=== PATIENT | female | born 1955 | race Caucasian/White ===

== ENCOUNTER → 2019-04-09 11:45 | Outpatient (BNVA) | payer OTHER, SELFPAY | PROVIDERS: Visit Provider Psychiatry & Neurology Psychiatry | DX: F33.1 Major depressive disorder, recurrent, moderate (principal) | CPT/HCPCS: 99213 ==

== ENCOUNTER → 2019-07-02 08:05 | Outpatient (BNVA) | payer OTHER, SELFPAY | PROVIDERS: PCP Nurse Practitioner; Visit Provider Psychiatry & Neurology Psychiatry | DX: F33.1 Major depressive disorder, recurrent, moderate (principal) | CPT/HCPCS: 99213 ==

== ENCOUNTER → 2019-09-24 07:40 | Outpatient (BNVA) | payer OTHER, SELFPAY | PROVIDERS: PCP Nurse Practitioner; Visit Provider Psychiatry & Neurology Psychiatry | DX: F33.1 Major depressive disorder, recurrent, moderate (principal) | CPT/HCPCS: 99213 ==

== ENCOUNTER → 2019-12-21 07:59 | Outpatient (BNVA) | payer MEDICARE, OTHER, SELFPAY | PROVIDERS: PCP Nurse Practitioner; Visit Provider Psychiatry & Neurology Psychiatry | DX: F33.1 Major depressive disorder, recurrent, moderate (principal) | CPT/HCPCS: 99213 ==

== ENCOUNTER → 2020-03-24 07:53 | Outpatient (BNVA) | payer MEDICARE, OTHER, SELFPAY | PROVIDERS: PCP Nurse Practitioner; Visit Provider Psychiatry & Neurology Psychiatry | DX: F33.1 Major depressive disorder, recurrent, moderate (principal) | CPT/HCPCS: 99213 ==

== ENCOUNTER → 2020-08-01 13:02 | Outpatient (BNVA) | payer MEDICARE, OTHER, SELFPAY | PROVIDERS: PCP Nurse Practitioner; Visit Provider Psychiatry & Neurology Psychiatry | DX: F33.1 Major depressive disorder, recurrent, moderate (principal) | CPT/HCPCS: 99213 ==

== ENCOUNTER → 2020-12-19 10:37 | Outpatient (BNVA) | payer MEDICARE, OTHER, SELFPAY | PROVIDERS: PCP Nurse Practitioner; Visit Provider Psychiatry & Neurology Psychiatry | DX: F33.1 Major depressive disorder, recurrent, moderate (principal) | CPT/HCPCS: 99213 ==

== ENCOUNTER → 2020-12-27 16:50 | Outpatient (BNVA) | payer MEDICARE, OTHER, SELFPAY | PROVIDERS: PCP Nurse Practitioner; Visit Provider Emergency Medicine | DX: R35.0 Frequency of micturition (principal); K52.9 Noninfective gastroenteritis and colitis, unspecified; E03.9 Hypothyroidism, unspecified | CPT/HCPCS: 81000 ==

== ENCOUNTER → 2021-04-08 17:25 | Outpatient (BNVA) | payer MEDICARE, OTHER, SELFPAY | PROVIDERS: PCP Nurse Practitioner; Visit Provider Nurse Practitioner Family | DX: R35.0 Frequency of micturition (principal) | CPT/HCPCS: 81000 ==

== ENCOUNTER → 2021-06-24 09:50 | Outpatient (BNVA) | payer MEDICARE, OTHER, SELFPAY | PROVIDERS: PCP Nurse Practitioner; Visit Provider Psychiatry & Neurology Psychiatry | DX: F33.1 Major depressive disorder, recurrent, moderate (principal) | CPT/HCPCS: 99213 ==

== ENCOUNTER → 2021-09-16 09:27 | Outpatient (BNVA) | payer MEDICARE, OTHER, SELFPAY | PROVIDERS: PCP Nurse Practitioner; Visit Provider Psychiatry & Neurology Psychiatry | DX: F33.1 Major depressive disorder, recurrent, moderate (principal) | CPT/HCPCS: 99213 ==

== ENCOUNTER → 2021-10-07 14:47 | Outpatient (BNVA) | payer MEDICARE, OTHER, SELFPAY | PROVIDERS: Visit Provider Nurse Practitioner Women's Health | DX: N89.8 Other specified noninflammatory disorders of vagina (principal) | CPT/HCPCS: 87624 ==

== ENCOUNTER → 2021-10-09 10:12 | Outpatient (BNVA) | payer MEDICARE, OTHER, SELFPAY | PROVIDERS: Visit Provider Emergency Medicine | DX: N39.0 Urinary tract infection, site not specified (principal); R30.0 Dysuria | CPT/HCPCS: 81000; 87086 ==

== ENCOUNTER → 2021-11-14 09:19 | Outpatient (BNVA) | payer MEDICARE, OTHER, SELFPAY | PROVIDERS: Visit Provider Emergency Medicine | DX: R30.0 Dysuria (principal); N39.0 Urinary tract infection, site not specified | CPT/HCPCS: 81000; 87077; 87086; 87184 ==

== ENCOUNTER → 2021-11-28 09:19 | Outpatient (BNVA) | payer MEDICARE, OTHER, SELFPAY | PROVIDERS: Visit Provider Emergency Medicine | DX: N39.0 Urinary tract infection, site not specified (principal); R35.0 Frequency of micturition | CPT/HCPCS: 81000; 87077; 87086; 87184 ==

== ENCOUNTER → 2021-12-02 09:25 | Outpatient (BNVA) | payer MEDICARE, OTHER, SELFPAY | PROVIDERS: Visit Provider Emergency Medicine | DX: R35.0 Frequency of micturition (principal); N30.01 Acute cystitis with hematuria; N32.81 Overactive bladder | CPT/HCPCS: 81000 ==

== ENCOUNTER 2021-12-14 14:09 | Emergency (ER) | payer MEDICARE, OTHER, SELFPAY ==
[2021-12-14 14:15] VITALS: BP 134/85; PULSE 95; RESP 16; TEMP 36.3; O2SAT 100; BMI 24.1
--- NOTE | 2021-12-14 14:30 | XRR_ITS ---
PROCEDURE INFORMATION: Exam: XR Chest Exam date and time: 12/14/2021 6:00 PM Age: 66 years old Clinical indication: Other: Back pain; Patient HX: Renal pain; Additional info: Ching TECHNIQUE: Imaging protocol: Radiologic exam of the chest. Views: 1 view. COMPARISON: CR XR chest 1V [id number] 05/25/2017 8:02 AM FINDINGS: Lungs: Unremarkable. No consolidation. Pleural spaces: Unremarkable. No pleural effusion. No pneumothorax. Heart/Mediastinum: Unremarkable. No cardiomegaly. Bones/joints: Mild dextroscoliosis of the thoracic spine. Visualized osseous structures are intact. XR/XR chest 1V portable [id number] IMPRESSION: No acute findings.
[2021-12-14 14:49] LABS: Add Urine Microscopic? NO; Charge for UA Resulting for Rev
[2021-12-14 15:11] LABS: Bilirubin Urine Neg (Negative); Blood Urine Neg (Negative); Glucose Urine UA Norm (Normal); Ketones Urine 1+ (Negative); Leukocyte Esterase Urine Negative (Negative); Nitrate Urine Negative (Negative); Protein Urine Neg (Negative); Specific Gravity, Urine 1.005 (1.005-1.030); Urine Appearance Clear (CLEAR); Urine Color Yellow (Yellow); Urobilinogen Urine Norm (Negative); pH Urine 6.5 (5-7)
[2021-12-14 15:15] LABS: Basophils % 0.3 %; Eosinophils % 0.4 %; Hemoglobin 15.4 g/dL (11.5-15.3); Lymphocytes # 1.3 10^3/uL (0.8-4.8); Mean Corpuscular HGB Conc 32.1 g/dL (30.0-36.0); Mean Corpuscular Hemoglobin 27.3 pg (28.0-34.0); Mean Corpuscular Volume 85.1 fl (81-99); Mean Platelet Volume 10.4 fL (7.4-10.4); Monocytes # 0.4 10^3/uL (0.2-0.9); Monocytes % 5.2 %; Neutrophils # 6.08 10^3/uL (1.8-7.7); Neutrophils % 77.7 %; Nucleated Red Blood Cells % 0 %; Platelet Count 316 10^3/cmm (130-400); Red Blood Count 5.64 10^6/uL (4.1-5.3); White Blood Count 7.8 10^3/uL (4.0-10.0)
[2021-12-14 15:28] LABS: Alanine Aminotransferase 63 U/L (0-33); Albumin Level 4.3 g/dL (3.5-5.2); Alkaline Phosphatase 201 U/L (35-105); Aspartate Amino Transferase 51 U/L (0-32); Blood Urea Nitrogen 25 mg/dL (8-23); Calcium 9.7 mg/dL (8.5-10.5); Carbon Dioxide 24 mmol/L (22-29); Chloride 99 mmol/L (98-107); Globulin 3.1 g/dL (1.3-4.6); Glomerular Filtration Rate 49.5 mL/min (90-130); Glucose 106 mg/dL (65-115); Lipase 42 U/L (13-60); Osmolality Calculated 289 mOsm/kg (285-295); Sodium 137 mmol/L (136-145); Total Bilirubin 0.8 mg/dL (0.15-1.2); Total Protein 7.4 g/dL (6.6-8.7)
[2021-12-14 15:31] LABS: SARS Covid-2 Antigen Negative (Negative)
[2021-12-14 15:35] LABS: Creatinine Clr Calc Pharmacy 40.6647
--- NOTE | 2021-12-14 18:10 | CTR_ITS ---
PROCEDURE INFORMATION: Exam: CT Abdomen And Pelvis Without Contrast Exam date and time: 12/14/2021 6:57 PM Age: 66 years old Clinical indication: Abdominal pain; Flank; Left; Additional info: Flank pain TECHNIQUE: Imaging protocol: Computed tomography of the abdomen and pelvis without contrast. Radiation optimization: All CT scans at this facility use at least one of these dose optimization techniques: automated exposure control; mA and/or kV adjustment per patient size (includes targeted exams where dose is matched to clinical indication); or iterative reconstruction. COMPARISON: CT abdomen pelvis w con* [id number] 05/21/2017 3:54 PM RADIATION DOSE METRICS: Total DLP (mGy-cm): 383.33 FINDINGS: Liver: Diffuse hepatic steatosis. No mass. Gallbladder and bile ducts: Normal. No calcified stones. No ductal dilation. Pancreas: Normal. No ductal dilation. Spleen: Normal. No splenomegaly. Adrenal glands: Normal. No mass. Kidneys and ureters: No renal stones. No hydronephrosis. Stomach and bowel: Unremarkable. No obstruction. No mucosal thickening. Appendix: No evidence of appendicitis. Intraperitoneal space: Unremarkable. No free air. No significant fluid collection. Vasculature: Unremarkable. No abdominal aortic aneurysm. Lymph nodes: Unremarkable. No enlarged lymph nodes. Urinary bladder: Unremarkable as visualized. Reproductive: Unremarkable as visualized. Bones/joints: No acute fracture. Soft tissues: Unremarkable. CT/CT kidney stone [id number] IMPRESSION: No acute findings. No renal stones.
[2021-12-14 18:22] LABS: Influenza A by IFA Negative (Negative); Influenza B by IFA Negative (Negative)
[2021-12-14 18:41] VITALS: BP 138/72
--- NOTE | 2021-12-14 18:51 | ED_ITS ---
HPI - Female Genitourinary General: Chief complaint: Urogenital-Female Stated complaint: Chills, back pain, shaking Time Seen by Provider: 12/14/21 18:09 Source: patient Mode of arrival: ambulatory Limitations: no limitations History of Present Illness: 66-year-old female states she has been having recu rrent UTIs over the last few weeks states she been on multiple antibiotics states she saw her provider today she been having some chills back pain and was concerned she may have a kidney infection she denies any vomiting denies any fever states her pain is sharp in nature rates it a 2-3 out of 10 she is in no distress here. Associated symptoms: Deny abdominal pain, headache(s) or nausea Review of Systems Const: Denies: fever(s), chills, body aches or change in appetite Eyes: Denies: blurry vision or eye discomfort ENMT: Denies: throat pain or dental pain Card: Denies: chest pain Resp: Denies: dyspnea GI: Denies: abdominal pain, nausea, vomiting or diarrhea : Reports: flank pain and dysuria Musc: Denies: neck pain or back pain Skin/Breast: Denies: rash Neuro: Denies: headache(s) Psych: Denies: depression Harinder/Lymph: Denies: easy bruising All/Imm: Denies: urticaria PFSH ED 2 PFSH: Medical History Bartholin cyst I&D Broken arm Hypothyroidism Irritable bowel syndrome (IBS) Lyme disease No pertinent past medical history neghx: htn,dm,dvt/pe PCP: [facility] Overactive bladder [facility] care [place] spotted fever Surgical History Deviated septum surgically H/O oral surgery wisdom teeth extraction Family History Father Thyroid disease Denies family history of Colon cancer Ovarian cancer Diabetes Heart disease Hypercholesteremia Breast cancer Hypertension Uterine cancer Stroke Social History Smoking and tobacco status: never smoked Female Reproductive History: Spontaneous abortions: No Physical Exam Const: COMMON NORMALS: no acute distress, patient oriented x3 and healthy appearing HENMT: COMMON NORMALS: normocephalic and atraumatic HEAD & SCALP: normoceph alic and atraumatic Eye: COMMON NORMALS: Equal, round and reactive pupils present and EOMs intact bilaterally PUPIL: Yes Equal, round and reactive pupils present Neck/C-Spine: COMMON NORMALS: full ROM and supple Chest: COMMONS NORMALS: normal inspection of the chest and normal palpation of entire chest wall Resp: COMMON NORMALS: normal respiratory effort, No retractions, No use of accessory muscles and clear to auscultation bilaterally AUSCULTATION: clear to auscultation bilaterally Cardio: COMMON NORMALS: regular rate, regular rhythm and No murmurs present (Cardio) RATE: regular rate RHYTHM: regular rhythm GI: COMMON NORMALS: Normal to inspection, nondistended, normoactive bowel sounds present, Soft to palpation, non-tender and no masses PALPATION: Yes Soft to palpation Extremity: COMMON NORMALS: normal to inspection and full ROM Neuro: COMMON NORMALS: patient oriented x3, moves all extremities and no focal motor deficits Psych: COMMON NORMALS: mental status grossly normal, Normal thought process present and cooperative THOUGHT PROCESS: Normal thought process present Skin: COMMON NORMALS: no rashes or lesions noted and no wounds GENERAL SKIN EXAM: no rashes or lesions noted Course Vital Signs: Vital signs: Vital Signs Temperature 97.4 F L 12/14/21 14:15 Pulse Rate 88 12/14/21 19:15 Respiratory Rate 17 12/14/21 19:15 Blood Pressure 138/91 12/14/21 19:15 Pulse Oximetry 100 12/14/21 19:15 Oxygen Delivery Me thod 12/14/21 19:15 MDM - Female Medical Decision Making Patient presents here with flank pain was concerned she had a kidney infection blood work here is all normal her CT is normal as well she is well-appearing here she is stable for discharge she is to follow-up with PCP and return if worsening she understands agrees plan. Lab Data : 12/14/21 14:50 12/14/21 14:50 Radiology Impressions Chest X-Ray 12/14/21 14:30 IMPRESSION: No acute findings. Abdomen/Pelvis CT 12/14/21 18:10 IMPRESSION: No acute findings. No renal stones. Laboratory Results WBC 7.8 10^3/uL (4.0-10.0) 12/14/21 14:50 RBC 5.64 10^6/uL (4.1-5.3) H 12/14/21 14:50 Hgb 15.4 g/dL (11.5-15.3) H 12/14/21 14:50 Hct 48.0 % (37.0-47.0) H 12/14/21 14:50 MCV 85.1 fl (81-99) 12/14/21 14:50 MCH 27.3 pg (28.0-34.0) L 12/14/21 14:50 MCHC 32.1 g/dL (30.0-36.0) 12/14/21 14:50 RDW 14.0 % (12.1-15.1) 12/14/21 14:50 Plt Count 316 10^3/cmm (130-400) 12/14/21 14:50 MPV 10.4 fL (7.4-10.4) 12/14/21 14:50 Neut % (Auto) 77.7 % 12/14/21 14:50 Lymph % (Auto) 16.0 % 12/14/21 14:50 [place] % (Auto) 5.2 % 12/14/21 14:50 Eos % (Auto) 0.4 % 12/14/21 14:50 Baso % (Auto) 0.3 % 12/14/21 14:50 Neut # (Auto) 6.08 10^3/uL (1.8-7.7) 12/14/21 14:50 Lymph # (Auto) 1.3 10^3/uL (0.8-4.8) 12/14/21 14:50 [place] # (Auto) 0.4 10^3/uL (0.2-0.9) 12/14/21 14:50 Eos # (Auto) 0.0 10^3/uL (0.0-0.8) 12/14/21 14:50 Baso # (Auto) 0.0 10^3/uL (0.0-0.1) 12/14/21 14:50 Nucleated RBC % (auto) 0 % 12/14/21 14:50 Nucleated RBCs # 0.0 /100WBC 12/14/21 14:50 Sodium 137 mmol/L (136-145) 12/14/21 14:50 Potassium 4.0 mmol/L (3.5-5.1) 12/14/21 14:50 Chloride 99 mmol/L (98-107) 12/14/21 14:50 Carbon Dioxide 24 mmol/L (22-29) 12/14/21 14:50 Anion Gap 18.0 (5-19) 12/14/21 14:50 BUN 25 mg/dL (8-23) H 12/14/21 14:50 Creatinine 1.1 mg/dL (0.5-0.9) H 12/14/21 14:50 GFR Calculation 49.5 mL/min (90-130) L 12/14/21 14:50 Glucose 106 mg/dL (65-115) 12/14/21 14:50 Calculated Osmolality 289 mOsm/kg (285-295) 12/14/21 14:50 Calcium 9.7 mg/dL (8.5-10.5) 12/14/21 14:50 Total Bilirubin 0.8 mg/dL (0.15-1.2) 12/14/21 14:50 AST 51 U/L (0-32) H 12/14/21 14:50 ALT 63 U/L (0-33) H 12/14/21 14:50 Alkaline Phosphatase 201 U/L (35-105) H 12/14/21 14:50 Total Protein 7.4 g/dL (6.6-8.7) 12/14/21 14:50 Albumin 4.3 g/dL (3.5-5.2) 12/14/21 14:50 Globulin 3.1 g/dL (1.3-4.6) 12/14/21 14:50 Lipase 42 U/L (13-60) 12/14/21 14:50 Urine Color Yellow (Yellow) 12/14/21 14:25 Urine Appearance Clear (CLEAR) 12/14/21 14:25 Urine pH 6.5 (5-7) 12/14/21 14:25 Ur Specific [place] 1.005 (1.005-1.030) 12/14/21 14:25 Urine Protein Neg (Negative) 12/14/21 14:25 Urine Glucose (UA) Norm (Normal) 12/14/21 14:25 Urine Ketones 1+ (Negative) H 12/14/21 14:25 Urine Blood Neg (Negative) 12/14/21 14:25 Urine Nitrate Negative (Negative) 12/14/21 14:25 Urine Bilirubin Neg (Negative) 12/14/21 14:25 Urine Urobilinogen Norm mg/dL (Negative) 12/14/21 14:25 Ur Leukocyte Esterase Negative (Negative) 12/14/21 14:25 Influenza Type A Ag Negative (Negative) 12/14/21 18:00 Influenza Type B Ag Negative (Negative) 12/14/21 18:00 SARS-CoV-2 Ag (Rapid) Negative (Negative) 12/14/21 14:48 Discharge Plan Discharge Patient Disposition: Home Clinical Impression: Back pain Qualifiers: Back pain location: low back pain Back pain laterality: bilateral Sciatica pre sence: without sciatica Condition: Stable Prescriptions: New ondansetron 4 mg tablet,disintegrating 4 mg PO Q6H PRN (Reason: nausea and vomiting) Qty: 14 0RF No Action ondansetron HCl 4 mg tablet 4 mg PO Q8H PRN (Reason: nausea and vomiting) Label Comments: Patient states not using this medicine. thyroid (pork) [Arroyo Thyroid] 90 mg tablet 30 mg PO BID levothyroxine 25 mcg capsule 25 mcg PO DAILY famotidine 10 mg tablet 10 mg PO DAILY PRN nystatin 100,000 unit/gram cream 1 applic topical BID escitalopram oxalate [Lexapro] 20 mg tablet 20 mg PO QDAY Qty: 90 0RF hydroxyzine HCl 25 mg tablet 25 mg PO TID PRN (Reason: anxiety) Qty: 270 0RF mirtazapine 30 mg tablet 30 mg PO .HS Qty: 90 0RF nortriptyline 50 mg capsule 50 mg PO .HS Qty: 90 0RF cholecalciferol (vitamin D3) 10 mcg (400 unit) capsule 10 mcg PO DAILY doxycycline hyclate 100 mg capsule 100 mg PO Q6H oxybutynin chloride 5 mg tablet extended release 24 hr 5 mg PO DAILY Qty: 30 1RF estradiol [Estrace] 0.01 % (0.1 mg/gram) cream 1 g vaginal .2-3 times weekly Qty: 42.5 0RF Rx Instructions: space out doses Discharge Orders: Discharge ED (Routine); Ordered 12/14/21 Ordered By: Korby Christopher Discharge Diet: Advance as tolerated Discharge Activity: Resume usual activity Patient Instructions: Back Pain (ED) Coding Level of Care Code ED Director Of Restaurant for Broderickg Fwd Exam Comprehensive
[2021-12-14 19:15] VITALS: BP 138/91; PULSE 88; RESP 17; O2SAT 100
[2021-12-14] MEDS: ondansetron 4 MG Tablet PO (19:43)
== END 2021-12-14 19:48 | disposition home or self-care (01) ==
PROVIDERS: Emergency Medicine; Emergency Provider Emergency Medicine
DX: M54.50 Low back pain, unspecified (principal); Z20.822 Contact with and (suspected) exposure to COVID-19
CPT/HCPCS: 36415; 71045; 74176; 80053; 81000; 81003; 83690; 85025; 87086; 87426; 87804; 99285; Q0162

== ENCOUNTER → 2021-12-21 13:31 | Outpatient (BNVA) | payer MEDICARE, OTHER, SELFPAY | PROVIDERS: Visit Provider Nurse Practitioner Family | DX: N39.0 Urinary tract infection, site not specified (principal); N32.81 Overactive bladder | CPT/HCPCS: 81000; 81003 ==

== ENCOUNTER → 2021-12-29 10:24 | Outpatient (BNVA) | payer MEDICARE, OTHER, SELFPAY | PROVIDERS: Visit Provider Nurse Practitioner Family | DX: N32.81 Overactive bladder (principal) | CPT/HCPCS: 81000 ==

== ENCOUNTER → 2022-01-06 09:02 | Outpatient (BNVA) | payer MEDICARE, OTHER, SELFPAY | PROVIDERS: Visit Provider Nurse Practitioner Family | DX: N39.0 Urinary tract infection, site not specified (principal) | CPT/HCPCS: 51798; 81003; 87086; 99203 ==

== ENCOUNTER → 2023-02-12 14:48 | Outpatient (BNVA) | payer MEDICARE, OTHER, SELFPAY | PROVIDERS: PCP Nurse Anesthetist, Certified Registered; Visit Provider Nurse Practitioner Family | DX: R69 Illness, unspecified (principal); Z79.899 Other long term (current) drug therapy | CPT/HCPCS: 82962 ==

== ENCOUNTER → 2023-10-03 11:28 | Outpatient (BNVA) | payer MEDICARE, OTHER, SELFPAY | PROVIDERS: PCP Nurse Anesthetist, Certified Registered; Visit Provider Podiatrist Foot & Ankle Surgery | DX: M21.612 Bunion of left foot | CPT/HCPCS: 73630; 99203 ==

== ENCOUNTER → 2023-11-30 14:12 | Outpatient (BNVA) | payer MEDICARE, OTHER, SELFPAY | PROVIDERS: PCP Nurse Anesthetist, Certified Registered; Visit Provider Nurse Practitioner Women's Health | DX: Z01.419 Encounter for gynecological examination (general) (routine) without abnormal findings (principal) | CPT/HCPCS: 87624 ==

== ENCOUNTER → 2023-12-21 10:23 | Outpatient (BNVA) | payer MEDICARE, OTHER, SELFPAY | PROVIDERS: PCP Nurse Anesthetist, Certified Registered; Visit Provider Nurse Practitioner Women's Health | DX: N90.89 Other specified noninflammatory disorders of vulva and perineum (principal) | CPT/HCPCS: 88305 ==

== ENCOUNTER → 2024-01-08 12:45 | Outpatient (BNVA) | payer MEDICARE, OTHER, SELFPAY | PROVIDERS: PCP Nurse Anesthetist, Certified Registered; Visit Provider Family Medicine | DX: R35.0 Frequency of micturition (principal) | CPT/HCPCS: 81000 ==

== ENCOUNTER 2024-12-05 12:00 | Emergency (ER) | payer MEDICARE, OTHER, SELFPAY ==
[2024-12-05 11:29] VITALS: BP 125/70; PULSE 95; RESP 16; TEMP 36.7; O2SAT 97; BMI 26.4
--- NOTE | 2024-12-05 12:03 | ECG_ITS ---
[facility] Date: 2024-12-05 Pat Name: Fernanda Sidhu Department: Room: Gender: Female Color Buffer: : 1955 Requested By: Gabriel Turk Order Number: [id number] Shamika MD: Ellen Malhotra M.D. Measurements Intervals [place] Rate: 92 P: 83 OK: 176 QRS: 44 QRSD: 78 T: 46 QT: 357 QTc: 443 Interpretive Statements SINUS RHYTHM LOW QRS VOLTAGE IN PRECORDIAL LEADS [QRS DEFLECTION < 1.0 mV IN CHEST LEADS] Compared to ECG 08/05/2017 05:55:38 No significant changes Electronically Signed On 12-05-2024 13:39:43 CDT by Ellen Malhotra M.D. [email or web address]
--- OUTSIDE RECORDS SUMMARY | 2024-12-05 12:07 | XMS_ITS | Encounter Summary ---
Author Organization [facility] Address [address] [place] [address] Care Team Providers Care Wire Spiral Binder Name Role Phone Valente Roberts DO Primary Care Provider [phone] Encounter Details Date Type Department Care Team (Late st Contact Info) Description 07/23/1998 Outpatient Historical [facility] Family Medicine [address] [place] [address] Tati Woodward MD NO ADDRESS ON FILE Other dyspnea and respiratory abnormality (Primary Dx) Social History Tobacco Use Types Packs/Day Years Used Date Smoking Tobacco: Never Assessed Comments Unknown Sex and Gender Information Value Date Recorded Sex Assigned at Not on file Legal Sex Female 4:41 AM RETAIL CUSTOMER SERVICE SPECIALIST Gender Identity Not on file Sexual Orientation Not on file documented as of this encounter Plan of Treatment Not on file documented as of this encounter Visit Diagnoses Diagnosis Other dyspnea and respiratory abnormality- Primary documented in this encounter Care Teams Wire Spiral Binder Relationship Specialty Start Date End Date Valente Roberts DO [address] [place] [address] PCP - General Marine Meteorologist 03/26/14 10/05/17 documented as of this encounter
--- OUTSIDE RECORDS SUMMARY | 2024-12-05 12:07 | XMS_ITS | Encounter Summary ---
Author Organization [facility] Address [address] [place] [address] Care Team Providers Care Senior Architectural Designer Name Role Phone Valente Roberts DO Primary Care Provider [phone] Encounter Details Date Type Department Care Team (Late st Contact Info) Description 03/10/1998 Outpatient Historical [facility] Family Medicine [address] [place] [address] Tati Woodward MD NO ADDRESS ON FILE Unspecified psychosis (CMS/HCC) (Primary Dx); Dizziness and giddiness; Poisoning by adrenal cortical steroids(962.0) Social History Tobacco Use Types Packs/Day Years Used Date Smoking Tobacco: Never Assessed Comments Unknown Sex and Gender Information Value Date Recorded Sex Assigned at Not on file Legal Sex Female 4:41 AM SEWER INSPECTOR Gender Identity Not on file Sexual Orientation Not on file documented as of this encounter Plan of Treatment Not on file documented as of this encounter Visit Diagnoses Diagnosis Unspecified psychosis (CMS/HCC)- Primary Unspecified psychosis Dizziness and giddiness Poisoning by adrenal cortical steroids(962.0) Poisoning by adrenal cortical steroids documented in this encounter Care Teams Senior Architectural Designer Relationship Specialty Start Date End Date Valente Roberts DO [address] [place] [address] PCP - General Radio Interference Trouble Shooter 03/26/14 10/05/17 documented as of this encounter
--- OUTSIDE RECORDS SUMMARY | 2024-12-05 12:07 | XMS_ITS | Encounter Summary ---
Author Organization [facility] Address [address] [place] [address] Care Team Providers Care Professor Of Early Childhood Education Name Role Phone Valente Roberts DO Primary Care Provider [phone] Encounter Details Date Type Department Care Team (Latest Contact Info) Description 02/03/1998 Outpatient Historical [facility] Endocrinology-[facility] [address] [place] [address] Erich Carl MD NO ADDRESS ON FILE Corticoadrenal insuffic (Primary Dx) Social History Tobacco Use Types Packs/Day Years Used Date Smoking Tobacco: Never Assessed Comments Unknown Sex and Gender Information Value Date Recorded Sex Assigned at Not on file Legal Sex Female 4:41 AM ENTRY WRITER Gender Identity Not on file Sexual Orientation Not on file documented as of this encounter Plan of Treatment Not on file documented as of this encounter Visit Diagnoses Diagnosis Corticoadrenal insuffic- Primary Glucocorticoid deficiency documented in this encounter Care Teams Professor Of Early Childhood Education Relationship Specialty Start Date End Date Valente Roberts DO [address] [place] [address] PCP - General Loom Inspector 03/26/14 10/05/17 documented as of this encounter
--- OUTSIDE RECORDS SUMMARY | 2024-12-05 12:07 | XMS_ITS | Encounter Summary ---
Author Organization [facility] Address [address] [place] [address] Care Team Providers Care Thermal Surfacing Machine Operator Name Role Phone Valente Roberts DO Primary Care Provider [phone] Encounter Details Date Type Department Care Team (Late st Contact Info) Description 07/02/1998 Outpatient Historical [facility] Family Medicine [address] [place] [address] Tati Woodward MD NO ADDRESS ON FILE Allergy, unspecified not elsewhere classified (Primary Dx) Social History Tobacco Use Types Packs/Day Years Used Date Smoking Tobacco: Never Assessed Comments Unknown Sex and Gender Information Value Date Recorded Sex Assigned at Not on file Legal Sex Female 4:41 AM HAND BLOCKER Gender Identity Not on file Sexual Orientation Not on file documented as of this encounter Plan of Treatment Not on file documented as of this encounter Visit Diagnoses Diagnosis Allergy, unspecified not elsewhere classified- Primary documented in this encounter Care Teams Thermal Surfacing Machine Operator Relationship Specialty Start Date End Date Valente Roberts DO [address] [place] [address] PCP - General Quill Winder 03/26/14 10/05/17 documented as of this encounter
--- OUTSIDE RECORDS SUMMARY | 2024-12-05 12:07 | XMS_ITS | Encounter Summary ---
Author Organization [facility] Address [address] [place] [address] Care Team Providers Care Refrigeration Lead Name Role Phone Valente Roberts DO Primary Care Provider [phone] Encounter Details Date Type Department Care Team (Late st Contact Info) Description 04/29/1998 Outpatient Historical [facility] Family Medicine [address] [place] [address] Tati Woodward MD NO ADDRESS ON FILE Acute sinusitis, unspecified (Primary Dx); Allergy, unspecified not elsewhere classified; Dermatophytosis of foot Social History Tobacco Use Types Packs/Day Years Used Date Smoking Tobacco: Never Assessed Comments Unknown Sex and Gender Information Value Date Recorded Sex Assigned at Not on file Legal Sex Female 4:41 AM DEMO COORDINATOR Gender Identity Not on file Sexual Orientation Not on file documented as of this encounter Plan of Treatment Not on file documented as of this encounter Visit Diagnoses Diagnosis Acute sinusitis, unspecified- Primary Allergy, unspecified not elsewhere classified Dermatophytosis of foot documented in this encounter Care Teams Refrigeration Lead Relationship Specialty Start Date End Date Valente Roberts DO [address] [place] [address] PCP - General Length Control Tester 03/26/14 10/05/17 documented as of this encounter
--- OUTSIDE RECORDS SUMMARY | 2024-12-05 12:07 | XMS_ITS | Encounter Summary ---
Author Organization [facility] Address [address] [place] [address] Care Team Providers Care Medical Anthropologist Name Role Phone Valente Roberts DO Primary Care Provider [phone] Encounter Details Date Type Department Care Team (Latest Contact Info) Description 08/11/1998 Outpatient Historical [facility] NE[facility] Chapito Ball MD NO ADDRESS ON FILE Dizziness and giddiness (Primary Dx) Social History Tobacco Use Types Packs/Day Years Used Date Smoking Tobacco: Never Assessed Comments Unknown Sex and Gender Information Value Date Recorded Sex Assigned at Not on file Legal Sex Female 4:41 AM CAR FERRY CAPTAIN Gender Identity Not on file Sexual Orientation Not on file documented as of this encounter Plan of Treatment Not on file documented as of this encounter Visit Diagnoses Diagnosis Dizziness and giddiness- Primary documented in this encounter Care Teams Medical Anthropologist Relationship Specialty Start Date End Date Valente Roberts DO [address] [place] [address] PCP - General Park Guard 03/26/14 10/05/17 documented as of this encounter
--- OUTSIDE RECORDS SUMMARY | 2024-12-05 12:07 | XMS_ITS | Encounter Summary ---
Author Organization [facility] Address [address] [place] [address] Care Team Providers Care Plastic Welding Machine Operator Name Role Phone Valente Roberts DO Primary Care Provider [phone] Encounter Details Date Type Department Care Team (Latest Contact Info) Description 02/21/1998 Outpatient [facility] Pulmonology-[facility] [place] [address] [place] [phone] Carlos Rico MD NO ADDRESS ON FILE Other dyspnea and respiratory abnormality (Primary Dx) Social History Tobacco Use Types Packs/Day Years Used Date Smoking Tobacco: Never Assessed Comments Unknown Sex and Gender Information Value Date Recorded Sex Assigned at Not on file Legal Sex Female 4:41 AM CELL TESTER Gender Identity Not on file Sexual Orientation Not on file documented as of this encounter Plan of Treatment Not on file documented as of this encounter Visit Diagnoses Diagnosis Other dyspnea and respiratory abnormality- Primary documented in this encounter Care Teams Plastic Welding Machine Operator Relationship Specialty Start Date End Date Valente Roberts DO [address] [place] [address] PCP - General Record Producer 03/26/14 10/05/17 documented as of this encounter
--- OUTSIDE RECORDS SUMMARY | 2024-12-05 12:07 | XMS_ITS | Encounter Summary ---
Author Organization [facility] Address [address] [place] [address] Care Team Providers Care Digital X Ray Service Engineer Name Role Phone Valente Roberts DO Primary Care Provider [phone] Encounter Details Date Type Department Care Team (Late st Contact Info) Description 04/07/1998 Outpatient Historical [facility] Family Medicine [address] [place] [address] Tati Woodward MD NO ADDRESS ON FILE Other diseases of trachea and bronchus, not elsewhere classified (Primary Dx); Corticoadrenal insuffic Social History Tobacco Use Types Packs/Day Years Used Date Smoking Tobacco: Never Assessed Comments Unknown Sex and Gender Information Value Date Recorded Sex Assigned at Not on file Legal Sex Female 4:41 AM LINUX ARCHITECT Gender Identity Not on file Sexual Orientation Not on file documented as of this encounter Plan of Treatment Not on file documented as of this encounter Visit Diagnoses Diagnosis Other diseases of trachea and bronchus, not elsewhere classified- Primary Corticoadrenal insuffic Glucocorticoid deficiency documented in this encounter Care Teams Digital X Ray Service Engineer Relationship Specialty Start Date End Date Valente Roberts DO [address] [place] [address] PCP - General Voice Intercept Technician 03/26/14 10/05/17 documented as of this encounter
--- OUTSIDE RECORDS SUMMARY | 2024-12-05 12:07 | XMS_ITS | Encounter Summary ---
Author Organization [facility] Address [address] [place] [address] Care Team Providers Care Patternmaker Sample Name Role Phone Valente Roberts DO Primary Care Provider Encounter Details Date Type Department Care Team (Latest Contact Info) Description 11/21/1997 Outpatient Historical [facility] Pulmonology-[facility] [place] [address] [place] [address] Carlos Rico MD NO ADDRESS ON FILE Unspecified asthma(493.90) (Primary Dx) Social History Tobacco Use Types Packs/Day Years Used Date Smoking Tobacco: Never Assessed Comments Unknown Sex and Gender Information Value Date Recorded Sex Assigned at Not on file Legal Sex Female 4:41 AM BALL SORTER Gender Identity Not on file Sexual Orientation Not on file documented as of this encounter Plan of Treatment Not on file documented as of this encounter Visit Diagnoses Diagnosis Unspecified asthma(493.90)- Primary Unspecified asthma documented in this encounter Care Teams Patternmaker Sample Relationship Specialty Start Date End Date Valente Roberts DO [address] [place] [address] PCP - General Carpenter Refrigerator 03/26/14 10/05/17 documented as of this encounter
--- OUTSIDE RECORDS SUMMARY | 2024-12-05 12:07 | XMS_ITS | Clinical Summary ---
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 9 Active cefUROXime axetil (CEFTIN) 500 mg tablet Take 500 mg by mouth 2 times daily. 9 Active mirtazapine (REMERON) 30 mg tablet Take 1 Tablet (30 mg) by mouth daily at bedtime. 30 Tablet 1 8 Active cholecalciferol, Vitamin D3, 125 mcg (5,000 unit) Capsule Take 1 Capsule (5,000 Units) by mouth daily. 30 Capsule 1 8 Active ofloxacin (OCUFLOX) 0.3 % solution 1 drop in the operative eye 3 x daily, starting 3 days prior to surgery, and 1 week after. 5 mL 1 1 Active ketorolac tromethamine (ACULAR) 0.4 % solution 1 drop in the operative eye 3 x daily, starting 3 days prior to surgery, and 1 week after. 5 mL 1 1 Active nystatin (MYCOSTATIN) 100,000 unit/mL suspension Take 500,000 Units by mouth 4 times daily. 1 Active nystatin (MYCOSTATIN) 100,000 unit/gram Cream Apply to affected area 2 times daily. 1 Active enzymes,digestive (DIGESTIVE ENZYMES ORAL) Take by mouth daily . 5 Active hydrOXYzine HCL (ATARAX) 25 mg tablet Take 25 mg by mouth 3 times daily as needed for Itching. 5 Active doxycycline hyclate (VIBRAMYCIN) 100 mg capsule Take 100 mg by mouth 2 times daily. 5 Active thyroid, pork, (ARMOUR THYROID) 30 mg tablet Take 1 Tablet (30 mg) by mouth 2 times daily. 30 Tablet 1 8 Active Active Problems Problem Noted Date Diagnosed Date Agitation requiring sedation protocol 11/14/2024 Paranoia 11/14/2024 Acute psychosis 11/14/2024 Non compliance with medical treatment 11/14/2024 Tick bite of thoracic wall 11/14/2024 Acute metabolic encephalopathy 11/14/2024 Pseudophakia of right eye 01/31/2019 Wrist fracture 08/27/2014 Hypothyroidism History of tick-borne disease Diarrhea Nausea Lyme disease Malaise and fatigue Benign paroxysmal positional vertigo Encounters Date Type Department Care Team Description 11/20/2024 External Device Data [facility] ABSTRACTION Provider, Abstract 11/20/2024 External Device Data [facility] ABSTRACTION Provider, Abstract 11/20/2024 External Device Data [facility] ABSTRACTION Provider, Abstract 11/15/2024 - 11/15/2024 11:59 PM CDT Hospital Encounter [facility] Emergency Medical Services [place] [address] [place] [address] Masoud Steiner MD Ambulance, [facility] Discharge Disposition: [facility] 11/15/2024 Results Follow-Up [facility] Emergency Medicine [address] [place] [phone] Helen Bennett RN HIV DETECTION W/REFLX CONFIRMATION, TICK-BORNE PANEL, PCR, ALPHA-GAL PANEL, [facility] SPOTTED FEVER IGG/IGM 11/14/2024 3:47 PM CDT - 11/15/2024 4:10 PM CDT Emergency [facility] Emergency Department [address] [place] [phone] Malik Byrnes MD Schizophrenia, unspecified type (CMS/HCC) (Primary Dx) Discharge Disposition: [facility] 11/14/2024 9:04 AM CDT - 11/14/2024 2:19 PM CDT Emergency [facility] Emergency Medicine [address] [phone] Lucrecia Porras MD Acute metabolic encephalopathy (Primary Dx); Tick bite of thoracic wall, unspecified whether front or back, initial encounter; Non compliance with medical treatment; Acute psychosis (CMS/HCC); Paranoia (CMS/HCC); Agitation requiring sedation protocol Discharge Disposition: Acute Care Hospital 11/14/2024 - 11/14/2024 11:59 PM CDT Hospital Encounter [facility] Emergency Medical Services [place] [address] [facility] [address] [place] [phone] Ambulance, [facility] Discharge Disposition: Short term general hospital 11/14/2024 Travel from Last 3 Months Family History Medical History Relation Name Comments Cataract Father Detachment/Tears Other Diabetes Other Glaucoma Other Macular Degen Other Relation Name Status Comments Father Other Social History Tobacco Use Types Packs/Day Years Used Date Smoking Tobacco: Never Smokeless Tobacco: Never Alcohol Use Standard Drinks/Week Comments No 0 (1 standard drink = 0.6 oz pur e alcohol) Feeling Safe Answer Date Recorded Are you in a relationship wi th someone who hurts you emotionally and/or physically? 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 Gender Identity Not on file Sexual Orientation Not on file Last Filed Vital Signs Vital Sign Reading Time Taken Comments Blood Pressure 135/65 11/15/2024 11:00 AM CDT Pulse 94 11/15/2024 11:00 AM CDT Temperature 36.9 C (98.4 F) 11/15/2024 11:00 AM CDT Respiratory Rate 17 11/15/2024 11:00 AM CDT Oxygen Saturation 98% 11/15/2024 11:00 AM CDT Inhaled Oxygen Concentration - - Weight 60.9 kg (134 lb 3.2 oz) 11/14/2024 9:05 A M CDT Height 165.1 cm (5' 5 ) 11/14/2024 9:05 AM CDT Body Mass Index 22.33 11/14/2024 9:05 AM CDT Plan of Treatment Health Maintenance Due Date Last Done Comments DTAP/TDAP/TD VACCINES (1 - Tdap) 1973 BREAST CANCER SCREENING 1994 COLORECTAL SCREENING 12/02/1999 Colorectal Cancer Screening 12/02/1999 FIT-DNA Q 3 years 12/02/1999 FIT/FOBT Q 1 year 12/02/1999 Flex Sig/CT Colonography Q 5 years 12/02/1999 PNEUMOCOCCAL VACCINE 50+ YEARS (1 of 1 - PCV) 12/02/19 05 ZOSTER VACCINE (1 of 2) 2004 RSV VACCINE (60+ or ) (1 - Risk 60-74 years 1-dose series) 2014 OSTEOPOROSIS SCREENING 12/02/2019 INFLUENZA VACCINE (#1) 2024 Medical Devices Implanted Type Area Warp Hand Device Identifier Shelf Expiration Date Model / Serial / Lot Lens Io Tecnis 1pc 19.5 [id number] - [id number] Implanted:Qty: 1 on 06/04/2014 by Paul Stafford MD Eye Right: Eye [employer] 02/27/2018 [id number] / [id number] / Lens Io Tecnis 1pc 19.5 [id number] - [id number] Implanted:Qty: 1 on 08/26/2020 by Paul Stafford MD Eye Left: Eye [employer] 11/25/2023 [id number] / [id number] / Procedures Procedure Name Priority Date/Time Associated Diagnosis Comments INFLUENZA A/B, RSV AND COVID-19 PCR PANEL Stat 11/15/2024 10:04 AM CDT INFLUENZA A/B, RSV AND COVID-19 PCR PANEL Stat 11/15/2024 10:04 AM CDT EXTRA TUBE (URINE NOLAN) Stat 11/15/2024 8:30 AM CDT DRUG SCREEN, URINE Stat 11/15/2024 8: 30 AM CDT URINALYSIS W/REFLEX MICROSCOPIC Stat 11/15/2024 8:[address] HEAD WO CONTRAST Stat 11/14/2024 9 :52 AM CDT HIV DETECTION W/REFLX CONFIRMATION Stat 11/14/2024 9:20 AM CDT ALPHA-GAL PANEL Stat 11/14/2024 9:20 AM CDT ETHANOL LEVEL Stat 11/14/2024 9:20 AM CDT ACETAMINOPHEN LEVEL Stat 11/14/2024 9 :20 AM CDT SALICYLATE LEVEL Stat 11/14/2024 9:20 AM CDT MAGNESIUM LEVEL Stat 11/14/2024 9:20 AM CDT C-REACTIVE PROTEIN Stat 11/14/2024 9: 20 AM CDT LACTIC ACID Stat 11/14/2024 9:20 AM CDT TSH Stat 11/14/2024 9:20 AM CDT BRAIN NATRIURETIC PEPTIDE, BNP OR PROBNP Stat 11/14/2024 9:20 AM CDT COMPREHENSIVE METABOLIC PANEL Stat 11/14/2024 9:20 AM CDT ANA CRISTINA MTN SPOTTED FEVER AB IGG/IGM Stat 11/14/2024 9:20 AM CDT TICK-BORNE PANEL, PCR Stat 11/14/2024 9:20 AM CDT SEDIMENTATION RATE Stat 11/14/2024 9: 20 AM CDT CBC WITH DIFFERENTIAL Stat 11/14/2024 9:20 AM CDT from Last 3 Months Results * INFLUENZA A/B, RSV AND COVID-19 PCR PANEL (11/15/2024 10:04 AM CDT) COVID-19 PCR NOT DETECTED Not Detected 11/16/19 11:00 AM CDT [facility] Influenza A by PCR NOT DETECTED Not Detected 11/15/2024 11:00 AM CDT [facility] Influenza B by PCR NOT DETECTED Not Detected 11/15/2024 11:00 AM CDT [facility] RSV by PCR NOT DETECTED Not Detected 11/15/2024 11:00 AM CDT [facility] Upper Respiratory ENTIRE NASOPHARYNX / Unknown Collection / Unknown 11/15/2024 10:04 AM CDT 11/15/2024 10:07 AM CDT Narrative [facility] - 11/15/2024 11:00 AM CDT This test has been authorized by the FDA under an Emergency Use Authorization for use by authorized laboratories. This test has been validated in accordance with the FDA's guidance regarding Coronavirus Disease-2019 testing. Optimum specimen types and timing for peak viral levels during infection have not been determined. A negative RT-PCR result does not rule out infection with the 2019-Novel Coronavirus. Masoud Steiner MD MICROBIOLOGY - GENERAL ORDERAB LES Final Result [facility] CLIA # [id number] [address] [place] [id number] * EXTRA TUBE (URINE NOLAN) (11/15/2024 8:30 AM CDT) Urine URINE SPECIMEN OBTAINED BY CLEAN CATCH PROCEDURE / Unknown Collection / Unknown 11/15/2024 8:30 AM CDT 11/15/2024 8:34 AM CDT Masoud Steiner MD URINE ORDERABLES Final Result [facility] CLIA # [id number] [facility] [address] [place] [place] [address] * (ABNORMAL) DRUG SCREEN, URINE (11/15/2024 8:30 AM CDT) Pathologist [facility] AMPHETAMINE QUAL, URINE Negative Negative 11/15/2024 9:12 AM CDT [facility] BARBITURATE QUAL, URINE Negative Negative 11/15/2024 9:12 AM CDT [facility] BENZODIAZEPINE QUAL, URINE Presumptive Positive(A) Negative 11/15/2024 9:12 AM CDT [facility] COCAINE QUAL URINE Negative Negative 11/15/2024 9:12 AM CDT [facility] OPIATE QUAL, URINE Negative Negative 11/15/2024 9:12 AM T [facility] CANNABINOIDS QUAL, URINE Negative Negative 11/15/2024 9:12 AM CDT [facility] OXYCODONE QUAL, URINE Negative Negative 11/15/2024 9:12 AM T [facility] METHADONE QUAL, URINE Negative Negative 11/15/2024 9:12 AM CDT [facility] FENTANYL QUAL, URINE Negative Negative 11/15/2024 9:12 AM T [facility] CREATININE, URINE 92.1 29.0 - 226.0 mg/dL 11/15/2024 9:12 AM [facility] Comment:Reference Range vari es with fluid intake and diet. Urine URINE SPECIMEN OBTAINED BY CLEAN CATCH PROCEDURE / Unknown Collection / Unknown 11/15/2024 8:30 AM CDT 11/15/2024 8:34 AM CDT Narrative [facility] - 11/15/2024 9:12 AM CDT This test is a qualitative screen. The presumptive positive results should not be used for legal purposes. If confirmation of results is desired, the lab must be contacted without delay. Drug Ref. Range Screening Threshold Amphetamines Negative 500 ng/mL Barbiturates Negative 200 ng/mL Benzodiazepines Negative 100 ng/mL Cannabinoids Negative 50 ng/mL Cocaine Metabolite Negative 300 ng/mL Opiate Negative 300 ng/mL Oxycodone Negative 100 ng/mL Methadone Negative 300 ng/mL Fentanyl Negative 5 ng/mL us Masoud Steiner MD URINE ORDERABLES Final Result [facility] CLIA # [id number] [facility] [address] [address] [place] [address] * (ABNORMAL) URINALYSIS WITH REFLEX MICROSCOPIC (11/15/2024 8:30 AM CDT) COLOR UA Pale Yellow Pale to Dark Yellow 11/15/2024 8:49 AM T [facility] CLARITY UA Clear Clear 11/15/2024 8:49 AM T [facility] SPECIFIC GRAVITY UA 1.017 1.003 - 1.035 11/15/2024 8:49 AM T [facility] PH UA 6.0 5.0 - 8.0 11/15/2024 8:49 AM T [facility] LEUKOCYTE ESTERASE UA Negative Negative 11/15/2024 8:49 AM [facility] NITRITE UA Negative Negative 11/15/2024 8:49 AM [facility] PROTEIN UA Negative Negative 11/15/2024 8:49 AM T [facility] GLUCOSE UA Negative Negative 11/15/2024 8:49 AM [facility] KETONES UA 2+(A) Negative 11/15/2024 8:49 AM [facility] UROBILINOGEN UA <2.0 <2.0 mg/dL 8:49 AM T [facility] BILIRUBIN UA Negative Negative 11/15/2024 8:49 AM [facility] BLOOD UA Negative Negative 11/15/2024 8:49 AM [facility] Urine URINE SPECIMEN OBTAINED BY CLEAN CATCH PROCEDURE / Unknown Collection / Unknown 11/15/2024 8:30 AM CDT 11/15/2024 8:34 AM CDT Masoud Steiner MD URINE ORDERABLES Final Result [facility] # [id number] [address] [place] [address] [place] [address] * CT HEAD WO CONTRAST (11/14/2024 9:52 AM CDT) Anatomical Region Laterality Modality Head Computed Tomogra phy 11/14/2024 9:31 AM CDT Impressions 11/14/2024 10:12 AM CDT IMPRESSION: Please see below. CT Head Without Contrast Date: 11/14/2024 9:52 AM Reason For Exam: Mental status change, unknown cause. Diagnosis: See Reason for Exam. Technique: Conventional axial images were obtained through the brain without contrast. Comparison: None FINDINGS: Examination is motion limited. Midline structures central. Ventricles nondilated. Mild global volume loss. Parenchymal attenuation is grossly normal. No gross brain injury or hemorrhage. Skull base and calvaria are intact. Mastoid air cells, middle ear cavities and visualized paranasal sinuses are grossly clear. IMPRESSION: No acute intracranial findings. Narrative Procedure Note SeraHardy Ed, DO - 11/14/2024 IMPRESSION: Please see below. CT Head Without Contrast Date: 11/14/2024 9:52 AM Reason For Exam: Mental status change, unknown cause. Diagnosis: See Reason for Exam. Technique: Conventional axial images were obtained through the brain without contrast. Comparison: None FINDINGS: Examination is motion limited. Midline structures central. Ventricles nondilated. Mild global volume loss. Parenchymal attenuation is grossly normal. No gross brain injury or hemorrhage. Skull base and calvaria are intact. Mastoid air cells, middle ear cavities and visualized paranasal sinuses are grossly clear. IMPRESSION: No acute intracranial findings. Lucrecia Porras MD CT ORDERABLES Final Result * TICK-BORNE PANEL, PCR (11/14/2024 9:20 AM CDT) BORRELIA SP, PCR, BLOOD NOT DETECTED 11/16/2024 8:27 PM CDT [facility] Comment: REFERENCE RANGE: NOT DETECTED This test was developed and its analytical performance characteristics have been determined by [facility]. It has not been cleared or approved by FDA. This assay has been validated pursuant to the CLIA regulations and is used for clinical purposes. For additional information, please refer to [email or web address]/faq/qqx283 (This link is being provided for informational/ educational purposes only.) COMMENT INFECTIOUS DISEASE SEE COMMENT 11/16/2024 8:27 PM CDT [facility] Comment: A negative result does not exclude Borrelia infection as the concentration of the organism in blood may be low or non-existent in patients with Lyme disease, and may depend on timing of specimen collection from onset of symptoms. Clinical correlation is recommended and additional studies such as serologic testing may be indicated. BORRELIA MIYAMOTOI PCR NOT DETECTED 11/16/2024 8:27 PM CDT [facility] Comment: REFERENCE RANGE: NOT DETECTED This test detects but does not distinguish between B. miyamotoi and B. hermsii. This test was developed and its analytical performance characteristics have been determined by [facility]. It has not been cleared or approved by FDA. This assay has been validated pursuant to the CLIA regulations and is used for clinical purposes. EHRLICHIA EWINGII DNA, QL REAL TIME PCR NOT DETECTED 11/16/2024 8:27 PM CDT [facility] Comment: REFERENCE RANGE: NOT DETECTED This test was developed and its analytical performance characteristics have been determined by [facility]. It has not been cleared or approved by FDA. This assay has been validated pursuant to the CLIA regulations and is used for clinical purposes. BABESIA MICROTI PCR NOT DETECTED 8:27 PM CDT [facility] Comment: REFERENCE RANGE: NOT DETECTED This test was developed and its analytical performance characteristics have been determined by [facility]. It has not been cleared or approved by FDA. This assay has been validated pursuant to the CLIA regulations and is used for clinical purposes. EHRLICHIA CHAFFEENSIS PCR NOT DETECTED 11/16/2024 8:27 PM CDT [facility] Comment: REFERENCE RANGE: NOT DETECTED This test was developed and its analytical performance characteristics have been determined by [facility]. It has not been cleared or approved by FDA. This assay has been validated pursuant to the CLIA regulations and is used for clinical purposes. ANAPLASMA PHAGOCYTOPHILUM PCR NOT DETECTED 11/16/2024 8:27 PM CDT [facility] Comment: REFERENCE RANGE: NOT DETECTED This test was developed and its analytical performance characteristics have been determined by [facility]. It has not been cleared or approved by FDA. This assay has been validated pursuant to the CLIA regulations and is used for clinical purposes. Blood BLOOD SPECIMEN / Unknown Collection / Unknown 11/14/2024 9:20 AM CDT 11/14/2024 9:36 AM CDT [facility] - 11/16/2024 8:27 PM CDT Performing Organization Information: Site ID: [id number] Name: [facility] [facility], Address: [address] [place], [place] [id number] Director: Argentina Jasso MD,PhD,AURA Performing Organization Information: Site ID: [id number] Name: [facility], Address: [address] [place] [address] Director: Argentina Jasso MD,PhD,AURA Performing Organization Information: Site ID: [id number] Name: [facility] [facility], Address: [address] [place], [place] [address] Director: Argentina Jasso MD,PhD,AURA Performing Organization Information: Site ID: [id number] Name: [facility] [facility], Address: [address] [place], [place] [address] Director: Argentina Jasso MD,PhD,AURA Performing Organization Information: Site ID: [id number] Name: [facility] [facility], Address: [address] [place], [place] [address] Director: Argentina Jasso MD,PhD,AURA Performing Organization Information: Site ID: [id number] Name: [facility], Address: [address] [place] [address] Director: Argentina Jasso MD,PhD,AURA Lucrecia Porras MD CHEMISTRY ORDERABLES Final Resu lt [facility] [phone] * ALPHA-GAL PANEL (11/14/2024 9:20 AM CDT) ALLERGEN BEEF <0.10 kU/L 11/22/2024 8:09 PM CDT [facility] ALLERGEN BEEF (F27) CLASS 0 11/22/2024 8:09 PM CDT [facility] ARMENDARIZ (F88) IGE <0.10 kU/L 11/22/2024 8:09 PM CDT [facility] ALLERGEN ARMENDARIZ (F88) CLASS 0 11/22/2024 8:09 PM CDT [facility] ALLERGEN PORK <0.10 kU/L 11/22/2024 8:09 PM CDT [facility] ALLERGEN PORK (F26) CLASS 0 11/22/2024 8:09 PM CDT [facility] ALLERGY PANEL INTERP SEE COMMENT 11/22/2024 8:09 PM CDT [facility] Comment: Specific Level of Allergen IGE Class kU/L Specific IGE Antibody ----- --------- 0 <0.10 Absent/Undetectable 0/1 0.10-0.34 Very Low Level 1 0.35-0.69 Low Level 2 0.70-3.49 Moderate Level 3 3.50-17.4 High Level 4 17.5-49.9 Very High Level 5 50-100 Very High Level 6 >100 Very High Level The clinical relevance of allergen results of 0.10-0.34 kU/L are undetermined and intended for specialist use. Allergens denoted with a include results using one or more analyte specific reagents. In those cases, the test was developed and its analytical performance characteristics have been determined by [facility]. It has not been cleared or approved by the U.S. Food and Drug Administration. This assay has been validated pursuant to the CLIA regulations and is used for clinical purposes. GALACTOSE - ALPHA -1, 3 - GALACTOSE, IGE <0.10 <0.10 kU/L 11/22/2024 8:09 PM CDT [facility] Comment: Results above 0.1 kU/L indicate an allergen-specific IgE sensitization to qtpgofslw-f-5,3-galactose, and such patients are at risk for delayed allergic reactions following beef, pork, or armendariz consumption. Circulating IgE antibodies may remain undetectable despite a convincing clinical history because these antibodies may be directed towards allergens revealed or altered during industrial processing, cooking, or digestion and therefore do not exist in the original food for which the patient is tested. Sometimes individuals diagnosed with chronic urticaria may develop IgE antibodies directed against human thyroglobulin. Such antibodies may cross-react with the bovine thyroglobulin used in ImmunoCAP(R) Allergen o215, alpha-Gal, leading to a false-positive test result. A definitive diagnosis should be based on the evaluation of both clinical and laboratory findings and not on any single diagnostic method. Additional information can be found at [email or web address] Blood Collection / Unknown 11/14/2024 9:20 AM CDT 11/14/2024 9:45 AM CDT Narrative [facility] - 11/22/2024 8:09 PM CDT Performing Organization Information: Site ID: [place] [facility] Address: [address] [facility] [place] [address] Director: Dora Valle MD Performing Organization Information: Site ID: [id number] Name: [facility] [facility], Address: [address] [place] [phone] Director: Argentina Jasso MD,PhD,AURA Performing Organization Information: Site ID: [id number] Name: [facility] [facility], Address: [address] [place] [phone] Director: Argentina Jasso MD,PhD,AURA Site ID: [id number] Name: [facility] Address: [address] [address] Director: Dora Valle MD Lucrecia Porras MD CHEMISTRY ORDERABLES Edited Res ult - Final [facility] [phone] * HIV DETECTION W/REFLX CONFIRMATION (11/14/2024 9:20 AM CDT) HIV-1 AND 2 ABS AND HIV-1 AG Non-reacti ve Non-React miky 11/14/2024 5:50 PM CDT [facility] Blood BLOOD SPECIMEN / Unknown Collection / Unknown 11/14/2024 9:20 AM CDT 11/14/2024 11:59 AM CDT Lucrecia Porras MD CHEMISTRY ORDERABLES Final Resu lt Performing Organization Address [facility]/ZIP Co de Phone Number [facility] CLIA # [id number] [address] [place] [address] * LACTIC ACID (11/14/2024 9:20 AM CDT) LACTIC ACID 1.4 <=2.0 mmol/L 11/14/2024 9:47 AM CDT [facility] Blood BLOOD SPECIMEN / Unknown Collection / Unknown 11/14/2024 9:20 AM CDT 11/14/2024 9:32 AM CDT Lucrecia Porras MD CHEMISTRY ORDERABLES Final Resu lt [facility] CLIA # [id number] [address] [place] [id number] * [facility] SPOTTED FEVER IGG/IGM (11/14/2024 9:20 AM CDT) [facility] RMSF IGG NOT DETECTED 11/22/2024 8:09 PM CDT [facility] RMSF IGM NOT DETECTED 11/22/2024 8:09 PM CDT [facility] Comment:REFERENCE RANGE: NOT DETECTED Blood Collection / Unknown 11/14/2024 9:20 AM CDT 11/14/2024 9:45 AM CDT Narrative [facility] - 11/22/2024 8:09 PM CDT Performing Organization Information: Site ID: [id number] Name: [facility], Address: [address] [place] [phone] Director: Argentina Jasso MD,PhD,AURA Lucrecia Porras MD CHEMISTRY ORDERABLES Final Resu lt Performing Organization Address City/State/[facility] Co de Phone Number [facility] [phone] * (ABNORMAL) CBC WITH DIFFERENTIAL (11/14/2024 9:20 AM CDT) [facility] WBC 3.8(L) 4.0 - 10.0 K/uL 11/14/2024 9:35 AM CDT [facility] [facility] RBC 4.67 3.93 - 5.22 M/uL 11/14/2024 9:[address] [facility] HEMOGLOBIN 13.4 11.2 - 15.7 g/dL 11/14/2024 9:35 AM T [facility] HEMATOCRIT 39.4 34.1 - 44.9 % 11/14/2024 9:[address] [facility] MCV 84.4 79.4 - 94.8 fL 11/14/2024 9:35 AM T [facility] MCH 28.7 25.6 - 32.2 pg 11/14/2024 9:[address] [facility] MCHC 34.0 32.2 - 35.5 g/dL 11/14/2024 9:[address] [facility] RDW 15.5(H) 11.0 - 14.5 % 11/14/2024 9:[address] [facility] RDW-STDEV 47.7 36.9 - 56.9 fL 11/14/2024 9:[address] [facility] PLATELETS 220 163 - 337 K/uL 11/14/2024 9:[address] [facility] MPV 9.2(L) 10.0 - 14.8 fL 11/14/2024 9:[address] [facility] NEUTROPHILS 75(H) 34 - 71 % 11/14/2024 9:[address] [facility] LYMPHOCYTES 14(L) 19 - 52 % 11/14/2024 9:[address] [facility] MONOCYTES 9 5 - 13 % 11/14/2024 9:[address] [facility] EOSINOPHILS 1 1 - 6 % 11/14/2024 9:[address] [facility] BASOPHILS 1 0 - 1 % 11/14/2024 9:[address] [facility] IMMATURE GRANULOCYTES 0 % 11/14/2024 9:[address] [facility] NEUTROPHIL ABSOLUTE 2.88 1.56 - 6.13 K/uL 11/14/2024 9:[address] [facility] LYMPHOCYTE ABSOLUTE 0.55(L) 1.20 - 3.40 K/uL 11/14/2024 9:[address] [facility] MONOCYTE ABSOLUTE 0.36 0.24 - 0.36 K/uL 11/14/2024 9:[address] [facility] EOSINOPHIL ABSOLUTE 0.02(L) 0.04 - 0.36 K/uL 11/14/2024 9:[address] [facility] BASOPHILS ABSOLUTE 0.02 0.01 - 0.08 K/uL 11/14/2024 9:[address] [facility] IMMATURE GRANULOCYTES ABSOLUTE 0.01 K/uL 11/14/2024 9:[address] [facility] Blood Collection / Unknown 11/14/2024 9:20 AM CDT 11/14/2024 9:32 AM CDT us Lucrecia Porras MD HEMATOLOGY ORDERABLES Final Res ult Performing Organization Address City/[facility]/ZIP Co de Phone Number [facility] CLIA # [id number] [address] [place] [address] [phone] * SEDIMENTATION RATE (11/14/2024 9:20 AM CDT) ESR (SEDIMENTATION RATE) 14 0 - 30 mm/Hr 11/14/2024 9:37 AM CDT [facility] Blood Collection / Unknown 11/14/2024 9:20 AM CDT 11/14/2024 9:32 AM CDT Narrative [facility] - 11/14/2024 9:37 AM CDT Tube Lot: [id number] Exp Date: 03/20/2026 QC1 LOT [id number] EXP.03/25/2025 QC2 LOT [id number] EXP.03/25/2025 us Lucrecia Porras MD HEMATOLOGY ORDERABLES Final Res ult Performing Organization Address [facility]/ZIP Co de Phone Number [facility] CLIA # [id number] [address] [place] [address] [phone] * (ABNORMAL) C-REACTIVE PROTEIN (11/14/2024 9:20 AM CDT) CRP 7.5(H) <5.0 mg/L 11/14/2024 9:52 AM CDT [facility] Blood Collection / Unknown 11/14/2024 9:20 AM CDT 11/14/2024 9:32 AM CDT us Lucrecia Porras MD CHEMISTRY ORDERABLES Final Resu lt Performing Organization Address City/[facility]/ZIP Co de Phone Number [facility] CLIA # [id number] [address] [place] [address] 95339 * TSH (11/14/2024 9:20 AM CDT) TSH 3.49 0.27 - 4.20 uIU/mL 11/14/2024 9:55 AM CDT [facility] Blood Collection / Unknown 11/14/2024 9:20 AM CDT 11/14/2024 9:32 AM CDT us Lucrecia Porras MD CHEMISTRY ORDERABLES Final Resu lt Performing Organization Address City/[facility]/ZIP Co de Phone Number [facility] CLIA # [id number] [address] [place] [address] [phone] * (ABNORMAL) BRAIN NATRIURETIC PEPTIDE, BNP OR PROBNP (11/14/2024 9:20 AM CDT) PROBNP, N TERMINAL 522(H) 0 - 125 pg/mL 11/14/2024 9:52 AM CDT [facility] Comment: INTERPRETIVE COMMENT based on diagnosis: Diagnostic NT pro-BNP cutoffs for Heart Failure in the absence of renal failure is suggested for the following ranges <75 years: <125 pg/mL >=75 years: <450 pg/mL Exclusionary rule out cut-point for Acute Decompensated Heart Failure(ADHF) All ages: <300 pg/mL Diagnostic NT pro-BNP cutoffs for Acute Decompensated Heart Failure(ADHF) in the absence of renal failure is suggested for the following ages <50 years: > 450 pg/mL 50-75 years: > 900 pg/mL >75 years: >1800 pg/mL Blood Collection / Unknown 11/14/2024 9:20 AM CDT 11/14/2024 9:32 AM CDT us Lucrecia Porras MD CHEMISTRY ORDERABLES Final Resu lt [facility] CLIA # [id number] [address] [place] [address] 67518 * MAGNESIUM LEVEL (11/14/2024 9:20 AM CDT) MAGNESIUM 2.2 1.6 - 2.4 mg/dL 11/14/2024 9:52 AM CDT [facility] Blood Collection / Unknown 11/14/2024 9:20 AM CDT 11/14/2024 9:32 AM CDT us Lucrecia Porras MD CHEMISTRY ORDERABLES Final Resu lt Performing Organization Address [facility] Co tx Phone Number [facility] CLIA # [id number] [address] [place] [address] 83916 * ETHANOL LEVEL (11/14/2024 9:20 AM CDT) ETHANOL <10.10 <10.10 mg/dL 11/14/2024 9:52 AM CDT [facility] ETHANOL % <0.01 %w/v 11/14/2024 9:52 AM CDT [facility] Blood Collection / Unknown 11/14/2024 9:20 AM CDT 11/14/2024 9:32 AM CDT us Lucrecia Porras MD CHEMISTRY ORDERABLES Final Resu Performing Organization Address [facility] Phone Number [facility] CLIA # [id number] [address] [place] [address] [phone] * ACETAMINOPHEN LEVEL (11/14/2024 9:20 AM CDT) ACETAMINOPHEN LEVEL <5 0 - 30 ug/mL 11/14/2024 9:52 AM CDT [facility] Blood Collection / Unknown 11/14/2024 9:20 AM CDT 11/14/2024 9:32 AM CDT Narrative [facility] - 11/14/2024 9:52 AM CDT Therapeutic Range: 10-30 ug/mL The following Acetaminophen levels are associated with possible toxicity: 4 hours after dose >200 ug/mL 8 hours after dose >100 ug/mL 12 hours after dose >50 ug/mL Lucrecia Porras MD CHEMISTRY ORDERABLES Final Resu lt Performing Organization Address [facility]/ZIP Co de Phone Number [facility] CLIA # [id number] [address] [place] [address] [phone] * SALICYLATE LEVEL (11/14/2024 9:20 AM CDT) SALICYLATE LEVEL <0.5 0.0 - 20.0 mg/dL 11/14/2024 9:52 AM CDT [facility] Blood Collection / Unknown 11/14/2024 9:20 AM CDT 11/14/2024 9:32 AM CDT [facility] - 11/14/2024 9:52 AM CDT Negative <3.0 mg/dL Therapeutic 3.0 - 10 mg/dL Toxicity >30 mg/dl Lethal >60 mg/dL Lucrecia Porras MD CHEMISTRY ORDERABLES Final Resu lt Performing Organization Address City/[facility]/ZIP Co de Phone Number [facility] CLIA # [id number] [address] [place] [address] 46731 * (ABNORMAL) COMPREHENSIVE METABOLIC PANEL (11/14/2024 9:20 AM CDT) SODIUM 140 136 - 145 mmol/L 11/14/2024 9:52 AM CDT [facility] POTASSIUM 4.1 3.5 - 5.1 mmol/L 11/14/2024 9:52 AM CDT [facility] CHLORIDE 102 98 - 107 mmol/L 11/14/2024 9:52 AM T [facility] CO2 24 22 - 29 mmol/L 11/14/2024 9:52 AM CDT [facility] CALCIUM 9.7 8.8 - 10.2 mg/dL 11/14/2024 9:52 AM T [facility] BUN 17 8 - 23 mg/dL 11/14/2024 9:[address] [facility] CREATININE 0.99(H) 0.51 - 0.95 mg/dL 11/14/2024 9:[address] [facility] GLUCOSE 109(H) 74 - 99 mg/dL 11/14/2024 9:[address] [facility] TOTAL PROTEIN 6.8 6.6 - 8.7 g/dL 11/14/2024 9:[address] [facility] ALBUMIN 4.3 3.5 - 5.2 g/dL 11/14/2024 9:[address] [facility] BILIRUBIN TOTAL 0.9 0.0 - 1.2 mg/dL 11/14/2024 9:[address] [facility] ALKALINE PHOSPHATASE 124(H) 35 - 104 U/L 11/14/2024 9:[address] [facility] AST 60(H) 0 - 35 U/L 11/14/2024 9:[address] [facility] ALT 53(H) 0 - 35 U/L 11/14/2024 9:[address] [facility] GFR >60 >=60 mL/min/1.7 3 sq meter 11/14/2024 9:[address] [facility] Comment:eGFR calculated with 2020 CKD-EPI equation. Vegetarian diet, extremely high or low muscle mass, and may affect results. Cystatin C with Glomerular Filtration Rate is a suitable alternative for these patients. ANION GAP 14 5 - 20 mmol/L 11/14/2024 9:[address] [facility] Blood Collection / Unknown 11/14/2024 9:20 AM CDT 11/14/2024 9:32 AM [facility] us Lucrecia Porras MD CHEMISTRY ORDERABLES Final Resu lt [facility] CLIA # [id number] [address] [place] [address] 65548 from Last 3 Months Insurance MEDICARE PART A AND B * Guarantor: CHARO GARZA Account Type Relation to Patient Date of Phone Billing Address Personal/Family [address] [place] [address] [employer] [facility] MEDICARE PART A AND B [facility]
--- OUTSIDE RECORDS SUMMARY | 2024-12-05 12:07 | XMS_ITS | Encounter Summary ---
Author Organization [facility] Address 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
--- OUTSIDE RECORDS SUMMARY | 2024-12-05 12:07 | XMS_ITS | Encounter Summary ---
Author Organization [facility] Address [address] [place] [address] Care Team Providers Care Logistics Planning Manager Name Role Phone Valente Roberts DO Primary Care Provider [phone] Encounter Details Date Type Department Care Team (Latest Contact Info) Description 12/25/1999 Outpatient Historical [facility] Medicine [address] [phone] Linda Gonzalez MD [address] [place] [phone] Other and unspecified adverse effect of drug, medicinal and biological substance (Primary Dx) Social History Tobacco Use Types Packs/Day Years Used Date Smoking Tobacco: Never Assessed Comments Unknown Sex and Gender Information Value Date Recorded Sex Assigned at Not on file 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
--- OUTSIDE RECORDS SUMMARY | 2024-12-05 12:07 | XMS_ITS | Encounter Summary ---
Author Organization [facility] Address [address] [place] [address] Care Team Providers Care Shank Skinner Name Role Phone Valente Roberts DO Primary Care Provider [phone] Encounter Details Date Type Department Care Team (Late st Contact Info) Description 03/18/1998 Outpatient [facility] Psychiatry[address] [place] [address] Social History Tobacco Use Types Packs/Day Years Used Date Smoking Tobacco: Never Assessed Comments Unknown Sex and Gender Information Value Date Recorded Sex Assigned at Not on file 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
--- OUTSIDE RECORDS SUMMARY | 2024-12-05 12:07 | XMS_ITS | Clinical Summary ---
Author Organization [facility] Address [address] [place] [address] Care Team Providers Care Flatwork Washer Name Role Phone Unavailable Primary Care Provider Unavailabl e Allergies Active Allergy Reactions Criticality Noted Date Comments Ciprofloxacin Other (See Comments) 05/02/2014 Excessive crying when combined with antidepressant Erythromycin Other (See Comments) 03/27/2014 Elevated blood pressure Penicillins Rash Low 03/27/2014 Unclassified Drug Unknown 03/27/2014 CAN'T TAKE ANY STEROIDS-CAUSES RARE SIDE EFFECT-AMA'S DISEASE LIKE SYMPTOMS-SEIZURES Medications ENZYMES,DIGESTIVE (DIGESTIVE ENZYMES ORAL) Take by mouth daily . Active hydrOXYzine HCl (ATARAX) 25 mg tablet Take 25 mg by mouth 3 times daily as needed for Itching. Active doxycycline hyclate (VIBRAMYCIN) 100 mg capsule Take 100 mg by mouth 2 times daily. Active cholecalciferol, Vitamin D3, 5,000 unit Capsule Take 1 Capsule (5,000 Units) by mouth daily. 30 Capsule 1 8 Active mirtazapine (REMERON) 30 mg tablet Take 1 Tablet (30 mg) by mouth daily at bedtime. 30 Tablet 1 09/18/2017 4:20 PM CDT 8 Active nortriptyline (PAMELOR) 50 mg capsule Take 1 Capsule (50 mg) by mouth daily at bedtime. 30 Capsule 1 09/18/2017 4:20 PM CDT 8 Active thyroid, pork, (ARMOUR THYROID) 30 mg tablet Take 1 Tablet (30 mg) by mouth 2 times daily. 30 Tablet 1 8 Active EYE KIT Use as directed 1 Kit 02/28/2019 11:33 AM RN L AND D 9 Active escitalopram oxalate (LEXAPRO) 20 mg tablet 20 mg. 9 Active cefUROXime axetil (CEFTIN) 500 mg tablet Take 500 mg by mouth 2 times daily. 9 Active ofloxacin (OCUFLOX) 0.3 % solution 1 drop in the operative eye 3 x daily, starting 3 days prior to surgery, and 1 week after. 5 mL 1 1 Active ketorolac tromethamine (Acular LS) 0.4 % solution 1 drop in the operative eye 3 x daily, starting 3 days prior to surgery, and 1 week after. 5 mL 1 1 Active nystatin (MYCOSTATIN) 100,000 unit/mL suspension Take 500,000 Units by mouth 4 times daily. Active nystatin (MYCOSTATIN) 100,000 unit/gram Cream Apply to affected area 2 times daily. Active Active Problems Problem Noted Date Diagnosed Date Pseudophakia of right eye 01/31/2019 Wrist fracture 08/27/2014 Hypothyroidism History of tick-borne disease Nausea Diarrhea Lyme disease Malaise and fatigue Benign paroxysmal positional vertigo Family History Medical History Relation Name Comments Cataract Father Detachment/Tears Other Diabetes Other Glaucoma Other Macular Degen Other Relation Name Status Comments Father Other Social History Tobacco Use Types Packs/Day Years Used Date Smoking Tobacco: Never Smokeless Tobacco: Never Alcohol Use Standard Drinks/Week Comments No 0 (1 standard drink = 0.6 oz pur e alcohol) Comments No Sex and Gender Information Value Date Recorded Sex Assigned at Not on file 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 Gender Identity Not on file Sexual Orientation Not on file Last Filed Vital Signs Vital Sign Reading Time Taken Comments Blood Pressure 96/75 08/26/2020 9:32 AM CDT Pulse 68 08/26/2020 9:32 AM CDT Temperature 36 C (96.8 F) 08/26/2020 9:32 AM CDT Respiratory Rate 12 10/11/2017 4:30 PM CDT Oxygen Saturation 99% 08/26/2020 9:32 AM CDT Inhaled Oxygen Concentration - - Weight 60.3 kg (133 lb) 08/26/2020 8:14 AM CDT Height 154.9 cm (5' 1 ) 08/25/2020 3:26 PM CDT Body Mass Index 25.13 08/25/2020 3:26 PM CDT Plan of Treatment Health Maintenance Due [...] (#1) 2024 Medical Devices Implanted Type Area Market Specialist Device Identifier Shelf Expiration Date Model / Serial / Lot Lens Io Tecnis 1pc 19.5 [id number] - [id number] Implanted:Qty: 1 on 06/04/2014 by Paul Stafford MD at [facility] Right: Eye [employer] 02/27/2018 [id number] / [id number] / Lens Io Tecnis 1pc 19.5 [id number] - [id number] Implanted:Qty: 1 on 08/26/2020 by Paul Stafford MD at [facility] Left: Eye [employer] 11/25/2023 [id number] / [id number] / Insurance [employer] MEDICARE PART A AND B [employer] [facility] [place] [address] [place] [address] Advance Directives For more information, please contact: [phone] * Full Code (Latest Code Status on File) Date Activated Date Inactivated Comments 09/05/2017 3:05 AM 09/18/2017 4:49 PM * Full Code Date Activated Date Inactivated Comments 06/04/2014 8:01 AM 06/04/2014 11:40 AM
[2024-12-05 12:28] LABS: Hematocrit 29.1 % (36-47); Hemoglobin 9.60 g/dL (11.27-16.99); Mean Corpuscular HGB Conc 33.0 g/dL (30-55); Mean Corpuscular Hemoglobin 28.4 pg (27-33); Mean Corpuscular Volume 86.1 fl (85-98); Nucleated Red Blood Cells % 0 %; Platelet Count 222 10^3/cmm (157-399); Red Blood Count 3.38 10^6/uL (3.85-5.65); White Blood Count 3.65 10^3/uL (3.29-11.43)
[2024-12-05 12:54] LABS: Alanine Aminotransferase 49 U/L (0-33); Albumin Level 3.6 g/dL (3.5-5.2); Alkaline Phosphatase 82 U/L (35-105); Anion Gap 16.9 (5-19); Aspartate Amino Transferase 42 U/L (0-32); Blood Urea Nitrogen 12 mg/dL (8-23); Calcium 8.9 mg/dL (8.5-10.5); Carbon Dioxide 24 mmol/L (22-29); Chloride 107 mmol/L (98-107); Creatinine Clr Calc Pharmacy 55.8651; Globulin 2.2 g/dL (1.3-4.6); Glucose 86 mg/dL (65-115); Osmolality Calculated 297 mOsm/kg (285-295); Potassium 3.9 mmol/L (3.5-5.1); Sodium 144 mmol/L (136-145); Thyroid Stimulating Hormone 2.83 uIU/mL (0.27-4.20); Total Protein 5.8 g/dL (6.6-8.7)
[2024-12-05 12:57] LABS: Acetaminophen < 5.0 ug/mL (10-30); Alcohol Level < 10 mg/dL (0-10); Salicylate < 0.3 mg/dL (3-10)
--- NOTE | 2024-12-05 12:57 | W.ED.PSYCHS ---
HPI - Psych General: Chief Complaint: Psychiatric Symptoms Stated Complaint: MHE History of Present Illness: 69-year-old female history of IBS, hypothyroidism, depression, per EMS history of schizophrenia although I do not see documentation of this, on escitalopram, mirtazapine, nortriptyline by home med list, presenting to the emergency department with paranoia, was reportedly EMS called by Biju louise who is at the house because patient was ranting about being poisoned by Copper and propane. When EMS got to the scene patient was apparently agitated and uncooperative, given IV diazepam prior to transfer. Here in the ER patient is requesting treatment for copper poisoning and propane inhalation, she reports that she needs her Biaxin which she takes for chronic Lyme disease, she denies homicidal or suicidal ideation she denies auditory or visual hallucinations, she is difficult to obtain a history from because her thought process is nonlinear and she appears preoccupied with copper poisoning as well as receiving her antibiotic for chronic Lyme. She denies pain Related Data Home Medications ?Medication ?Instructions ?Recorded ?Confirmed cholecalciferol (vitamin D3) 10 50 mcg PO BID 10/03/24 12/05/24 mcg (400 unit) capsule levothyroxine 25 mcg tablet 25 mcg PO DAILY 10/03/24 12/05/24 (Unithroid) doxycycline monohydrate 100 mg 100 - 200 mg PO BID 12/05/24 12/05/24 capsule levothyroxine 50 mcg tablet 25 mcg PO BID 12/05/24 12/05/24 mirtazapine 15 mg tablet 15 mg PO BEDTIME 12/05/24 12/05/24 thyroid (pork) 30 mg tablet 30 mg PO BID 12/05/24 12/05/24 ([place] Thyroid) Previous Rx's ?Medication ?Instructions ?Recorded albuterol sulfate 90 mcg/actuation 2 puff inhalation Q6H PRN 01/07/24 aerosol inhaler shortness of breath or wheezing #8.5 grams escitalopram oxalate 20 mg tablet 20 mg PO QDAY #90 tabs 10/03/24 (Lexapro) mirtazapine 30 mg tablet 30 mg PO .HS #90 tabs 10/03/24 nortriptyline 50 mg capsule 50 mg PO DAILY #90 caps 10/03/24 estradiol 0.01% (0.1 mg/gram) 1 g vaginal .PRN #3 tubes 11/06/24 vaginal cream Allergies Allergy/AdvReac Type Severity Reaction Status Date / Time lidocaine Allergy Severe Shakes Verified 10/03/24 10:35 Corticosteroids Allergy ADR-Cramping Verified 10/03/24 10:35 (Glucocorticoids) of the Muscles Iodinated Contrast Media Allergy Unknown Verified 10/03/24 10:35 ciprofloxacin AdvReac Intermediate interfered Verified 10/03/24 10:35 with antidepressants codeine AdvReac Intermediate Abdominal Verified 10/03/24 10:35 pain erythromycin base AdvReac Intermediate BP raised Verified 10/03/24 10:35 Penicillins AdvReac Intermediate Rash Verified 10/03/24 10:35 phenobarbital AdvReac Intermediate Made Verified 10/03/24 10:35 'wired' prednisone AdvReac Intermediate Makes Verified 10/03/24 10:35 crazy Sulfa (Sulfonamide AdvReac Intermediate Upset Verified 10/03/24 10:35 Antibiotics) stomach PFSH ED PFSH: Medical History (Updated 12/05/24 @ 14:04 by Gabriel Turk MD) Overactive bladder Irritable bowel syndrome (IBS) No pertinent past medical history neghx: htn,dm,dvt/pe PCP: [facility] [place] spotted fever Lyme disease Hypothyroidism Broken arm Surgical History Deviated septum surgically H/O oral surgery wisdom teeth extraction Family History Father Thyroid disease Denies family history of Colon cancer Ovarian cancer Diabetes Heart disease Hypercholesteremia Breast cancer Hypertension Uterine cancer Stroke Social History Smoking and tobacco/nicotine status: unknown if used tobacco/nicotine Female Reproductive History: Spontaneous abortions: No Physical Exam Narrative: EXAM NARRATIVE: Gen: A&Ox4, no acute distress, nontoxic appearing HEENT: Normocephalic, atraumatic, no scleral icterus, external ears normal, moist mucous membranes Neck: Supple, full range of motion, no observable masses Lungs: No Respiratory distress, Lungs clear to auscultation bilaterally no rales, rhonchi, wheezing CV: Regular rate and rhythm, no murmur, no pitting edema to lower extremities bilaterally Abdomen: Soft, nondistended, nontender to palpation MSK: No joint swelling, FROM all 4 extremities Skin: No rashes, petechiae, lesions. Normal color per patient. Neuro: Alert and oriented, no slurred speech, sensation and strength grossly intact all 4 extremities Psych: Patient appears severely paranoid, preoccupied by thoughts of Copper and propane poisoning as well as requesting her antibiotic for chronic Lyme and bronchitis, she does not appear overtly severely psychotic from a psychomotor agitation perspective and does not appear to be responding to internal stimuli, thought process is nonlinear and disjointed Course Reevaluation(s): Reevaluation #1: Patient pacing the room, becoming mildly agitated, I was able to verbally redirect her back into bed without involuntary medication administration. At this time she is refusing further evaluation, I do of a concern for harm to self or others if her acute psychiatric condition is not managed and do not believe she is currently safe on her own at home in her current condition. Involuntary hold paperwork signed by myself, unable to admit to this facility given age limits 64 will need transfer to a geriatric psychiatric facility. This is in process now, waiting to discuss with accepting facility Time: 13:14 Reevaluation #2: Still waiting for urinalysis to rule out organic causes of her altered mental status, patient still getting out of bed, pacing, locked herself in the bathroom, patient will need to be placed back in the bed and will be given sedative involuntarily to protect her safety, Haldol 5 mg and Ativan 2 mg IV ordered. Time: 16:43 Reevaluation #3: Patient more peaceful after sedation, on pulse oximetry to monitor for respiratory depression, urinalysis without signs of infection, benzo positive in the urine drug screen otherwise no significant medical abnormalities that would require inpatient medical admission, is cleared for transfer to a psychiatric facility with geriatric capabilities once an accepting facility is found Time: 18:17 Vital Signs: Vital signs: Vital Signs Temperature 98.1 F 12/05/24 11:29 Pulse Rate 78 12/05/24 20:50 Respiratory Rate 16 12/05/24 19:28 Blood Pressure 118/67 12/05/24 20:50 Pulse Oximetry 98 12/05/24 20:50 Oxygen Delivery Me thod Room Air 12/05/24 19:28 MDM - Psych Medical Decision Making 69-year-old female history of depression and likely schizophrenia based on med list although no documentation in our system of this diagnosis presenting to the emergency department with significant paranoia regarding copper and propane poisoning, she does not appear acutely violent or aggressive at this time although she did receive IV diazepam by EMS for uncooperative status. She does not appear to be responding to internal stimuli at this time, however she does appear to be unsafe on her own in this condition, she was initially refusing IV and EKG this was convinced as part of requirement for her medical evaluation, she is refusing Haldol but at this time is not violent or aggressive and not getting out of bed so will discontinue this medication, would anticipate recommending admission inpatient psych for further treatment and evaluation if medically cleared from a blood work perspective. Lab Data Labs showing mild anemia, normal alcohol normal Tylenol normal salicylate, normal TSH, minimally elevated LFTs. No leukocytosis, normal electrolytes and normal kidney function, no hypoglycemia 12/05/24 12:20 12/05/24 12:20 Radiology Impressions Chest X-Ray 12/05/24 15:05 IMPRESSION: No acute findings. Laboratory Results WBC 3.65 10^3/uL (3.29-11.43) 12/05/24 12:20 RBC 3.38 10^6/uL (3.85-5.65) L 12/05/24 12:20 Hgb 9.60 g/dL (11.27-16.99) L 12/05/24 12:20 Hct 29.1 % (36-47) L 12/05/24 12:20 MCV 86.1 fl (85-98) 12/05/24 12:20 MCH 28.4 pg (27-33) 12/05/24 12:20 MCHC 33.0 g/dL (30-55) 12/05/24 12:20 RDW 16.9 % (12.1-15.1) H 12/05/24 12:20 Plt Count 222 10^3/cmm (157-399) 12/05/24 12:20 MPV 9.7 fL (7.4-10.4) 12/05/24 12:20 Neut % (Auto) 70.3 % 12/05/24 12:20 Lymph % (Auto) 15.9 % 12/05/24 12:20 [place] % (Auto) 11.8 % 12/05/24 12:20 Eos % (Auto) 1.4 % 12/05/24 12:20 Baso % (Auto) 0.3 % 12/05/24 12:20 Neut # (Auto) 2.57 10^3/uL (1.8-7.7) 12/05/24 12:20 Lymph # (Auto) 0.6 10^3/uL (0.8-4.8) L 12/05/24 12:20 [place] # (Auto) 0.4 10^3/uL (0.2-0.9) 12/05/24 12:20 Eos # (Auto) 0.1 10^3/uL (0.0-0.8) 12/05/24 12:20 Baso # (Auto) 0.0 10^3/uL (0.0-0.1) 12/05/24 12:20 Nucleated RBC % (auto) 0 % 12/05/24 12:20 Nucleated RBCs # 0.0 /100WBC 12/05/24 12:20 Sodium 144 mmol/L (136-145) 12/05/24 12:20 Potassium 3.9 mmol/L (3.5-5.1) 12/05/24 12:20 Chloride 107 mmol/L (98-107) 12/05/24 12:20 Carbon Dioxide 24 mmol/L (22-29) 12/05/24 12:20 Anion Gap 16.9 (5-19) 12/05/24 12:20 BUN 12 mg/dL (8-23) 12/05/24 12:20 Creatinine 0.8 mg/dL (0.5-0.9) 12/05/24 12:20 GFR Calculation 70.9 mL/min (90-130) L 12/05/24 12:20 Glucose 86 mg/dL (65-115) 12/05/24 12:20 Calculated Osmolality 297 mOsm/kg (285-295) H 12/05/24 12:20 Calcium 8.9 mg/dL (8.5-10.5) 12/05/24 12:20 Total Bilirubin 1.2 mg/dL (0.15-1.2) 12/05/24 12:20 AST 42 U/L (0-32) H 12/05/24 12:20 ALT 49 U/L (0-33) H 12/05/24 12:20 Alkaline Phosphatase 82 U/L (35-105) 12/05/24 12:20 Total Protein 5.8 g/dL (6.6-8.7) L 12/05/24 12:20 Albumin 3.6 g/dL (3.5-5.2) 12/05/24 12:20 Globulin 2.2 g/dL (1.3-4.6) 12/05/24 12:20 TSH 2.83 uIU/mL (0.27-4.20) 12/05/24 12:20 Urine Color Dark yellow (Yellow) A 12/05/24 17:45 Urine Appearance Turbid (CLEAR) A 12/05/24 17:45 Urine pH 6.5 (5-7) 12/05/24 17:45 Ur Specific [place] 1.020 (1.005-1.030) 12/05/24 17:45 Urine Protein 1+ (Negative) A 12/05/24 17:45 Urine Glucose (UA) Negative (Normal) 12/05/24 17:45 Urine Ketones 2+ (Negative) H 12/05/24 17:45 Urine Blood Negative (Negative) 12/05/24 17:45 Urine Nitrate Negative (Negative) 12/05/24 17:45 Urine Bilirubin Negative (Negative) 12/05/24 17:45 Urine Urobilinogen 1.0 mg/dL (Negative) 12/05/24 17:45 Ur Leukocyte Esterase Negative (Negative) 12/05/24 17:45 Urine RBC 0-2 /hpf (0-2) 12/05/24 17:45 Urine WBC 0-5 /hpf (0-5) 12/05/24 17:45 Ur Squamous Epith Cells 0-5 /hpf (0-5) 12/05/24 17:45 Amorphous Sediment 2+ /hpf 12/05/24 17:45 Urine Bacteria None seen /hpf (NONE) 12/05/24 17:45 Hyaline Casts 2.05 /lpf 12/05/24 17:45 Fine Granular Casts 0-4 /lpf H 12/05/24 17:45 Urine Mucus 3+ /hpf 12/05/24 17:45 Salicylates < 0.3 mg/dL (3-10) L 12/05/24 12:20 Urine Opiates Screen Negative ng/mL (Negative) 12/05/24 17:45 Acetaminophen < 5.0 ug/mL (10-30) L 12/05/24 12:20 Ur Barbiturates Screen Negative ng/mL (Negative) 12/05/24 17:45 Ur Phencyclidine Scrn Negative ng/mL (Negative) 12/05/24 17:45 Ur Amphetamines Screen Negative ng/mL (Negative) 12/05/24 17:45 U Benzodiazepines Scrn Positive ng/mL (Negative) H 12/05/24 17:45 Urine Cocaine Screen Negative ng/mL (Negative) 12/05/24 17:45 U Marijuana (THC) Screen Negative ng/mL (Negative) 12/05/24 17:45 Ethyl Alcohol < 10 mg/dL (0-10) 12/05/24 12:20 Influenza A (PCR) Negative (Negative) 12/05/24 15:15 Influenza Type B (PCR) Negative (Negative) 12/05/24 15:15 RSV (PCR) Negative (Negative) 12/05/24 15:15 SARS-CoV-2 (PCR) Negative (Negative) 12/05/24 15:15 All radiology interpretation(s) finalized by discharge EKG Data EKG 1: I personally reviewed and interpreted this EKG as follows: EKG interpretation date: 12/05/24 EKG interpretation time: 12:33 Interpretation: Sinus rhythm at 92 bpm, no STEMI, no ectopy, QTc 407 ms, normal axis Discharge Plan Discharge Patient Disposition: Xfer Psychiatric Hosp Clinical Impression: Acute psychosis Condition: Stable Referrals: Kristopher Astudillo CRNA [Primary Care Provider, Nurse Payable Representative] Print Language: Tongan Coding Level of Care Code ED Ticket Collector for Chg Ambrosio
--- NOTE | 2024-12-05 13:38 | PC.NURSE ---
Pt was read her 96 hour hold rights at this time. security present
--- NOTE | 2024-12-05 14:29 | PC.PHAR ---
Pt has several medications on hold at the pharmacy that have never been picked up. they are: New rx's 11/27/24 Miralax 17g daily prn, Colace 100mg bid, Omeprazole 20mg bid, Cefdinir 300mg bid. Hydroxyzine Pamoate 25mg Capsule tid prn 11/22/24. Pt also has a bottle of Clarithromycin 250mg bid 06/26/24, [place] Probiotics 1200mg, Loratadine 10mg, Lauricidin granules supplement (spilled all over the inside of medicine bag). Pt has an appointment card for tomorrow 12/06/24 at 10am with Kristopher at [facility] [phone]
--- NOTE | 2024-12-05 15:05 | XRR_ITS ---
PROCEDURE INFORMATION: Exam: XR Chest Exam date and time: 12/05/2024 3:10 PM Age: 69 years old Clinical indication: Screening exam; Other screening; Additional info: Psych clearance, no resp SX TECHNIQUE: Imaging protocol: Radiologic exam of the chest. Views: 1 view. COMPARISON: CR XR chest 1V portable [id number] 12/14/2021 6:00 PM FINDINGS: Lungs: Hypoventilatory changes in the lower lobe. Pleural spaces: Unremarkable. No pleural effusion. No pneumothorax. Heart/Mediastinum: Unremarkable. No cardiomegaly. Bones/joints: Unremarkable. XR/XR chest 1V portable [id number] IMPRESSION: No acute findings.
[2024-12-05 15:57] LABS: Respiratory Syncytial Virus Ce NEGATIVE (Negative); SARS-CoV-2 PCR NEGATIVE (Negative)
[2024-12-05] MEDS: LORazepam 1 MG/0.5 ML injection 2 MG IVP (16:51)
[2024-12-05] MEDS: haloperidol inj 5 mg/mL INJ 1 mL IVP (16:51)
[2024-12-05 17:30] VITALS: O2SAT 93
[2024-12-05 17:54] LABS: Glucose Urine UA Negative (Normal); Nitrate Urine Negative (Negative); Specific Gravity, Urine 1.020 (1.005-1.030)
[2024-12-05 17:56] LABS: Add Urine Microscopic? YES
[2024-12-05 18:01] LABS: PCP Screen Urine Negative (Negative)
[2024-12-05 18:21] LABS: UA Slide Review UA Slide Review Perf
[2024-12-05 18:30] VITALS: O2SAT 94
[2024-12-05 19:28] VITALS: PULSE 79; RESP 16; O2SAT 97
[2024-12-05 20:50] VITALS: BP 118/67; PULSE 78; O2SAT 98
== END 2024-12-05 20:53 ==
PROVIDERS: Emergency Provider Student in an Organized Health Care Education/Training Program; PCP Nurse Anesthetist, Certified Registered
DX: F23 Brief psychotic disorder (principal); Z11.52 Encounter for screening for COVID-19
CPT/HCPCS: 36415; 51701; 71045; 80053; 80306; 80307; 81001; 84443; 85025; 87637; 93005; 96361; 96374; 96375; 99285; J1630; J2060; J7030

== ENCOUNTER 2025-02-04 12:52 | Emergency (ER) | payer MEDICARE, OTHER, SELFPAY ==
[2025-02-04 12:58] VITALS: BP 107/70; PULSE 106; RESP 17; TEMP 36.4; O2SAT 100; BMI 22.4
[2025-02-04 14:29] VITALS: O2SAT 99
--- NOTE | 2025-02-04 14:29 | W.ED.RECABL ---
HPI - Recheck/Abnormal Lab/Rx General: Chief Complaint: Recheck/Abnormal Lab/Rx Stated Complaint: MHE Time Seen by Provider: 02/04/25 14:25 History of Present Illness: 69-year-old female with a history of overactive bladder, irritable bowel syndrome, and she tells me recently diagnosed schizophrenia and depression who presents to the emergency room at the direction of someone from the clinic today. Apparently she had just been admitted to an inpatient psychiatric facility. She was started on medications it was she was not sure if she liked the way they were working. She denies any suicidal or homicidal ideations. She says she wants to get her medications changed. We discussed that maybe she could get follow-up with behavioral health and for now go to the crisis center and she agrees. Related Data Home Medications ?Medication ?Instructions ?Recorded ?Confirmed cholecalciferol (vitamin D3) 10 50 mcg PO BID 10/03/24 12/05/24 mcg (400 unit) capsule levothyroxine 25 mcg tablet 25 mcg PO DAILY 10/03/24 12/05/24 (Unithroid) doxycycline monohydrate 100 mg 100 - 200 mg PO BID 12/05/24 12/05/24 capsule levothyroxine 50 mcg tablet 25 mcg PO BID 12/05/24 12/05/24 mirtazapine 15 mg tablet 15 mg PO BEDTIME 12/05/24 12/05/24 thyroid (pork) 30 mg tablet 30 mg PO BID 12/05/24 12/05/24 ([place] Thyroid) Previous Rx's ?Medication ?Instructions ?Recorded albuterol sulfate 90 mcg/actuation 2 puff inhalation Q6H PRN 01/07/24 aerosol inhaler shortness of breath or wheezing #8.5 grams escitalopram oxalate 20 mg tablet 20 mg PO QDAY #90 tabs 10/03/24 (Lexapro) mirtazapine 30 mg tablet 30 mg PO .HS #90 tabs 10/03/24 nortriptyline 50 mg capsule 50 mg PO DAILY #90 caps 10/03/24 estradiol 0.01% (0.1 mg/gram) 1 g vaginal .PRN #3 tubes 11/06/24 vaginal cream Allergies Allergy/AdvReac Type Severity Reaction Status Date / Time lidocaine Allergy Severe Shakes Verified 10/03/24 10:35 Corticosteroids Allergy ADR-Cramping Verified 10/03/24 10:35 (Glucocorticoids) of the Muscles Iodinated Contrast Media Allergy Unknown Verified 10/03/24 10:35 ciprofloxacin AdvReac Intermediate interfered Verified 10/03/24 10:35 with antidepressants codeine AdvReac Intermediate Abdominal Verified 10/03/24 10:35 pain erythromycin base AdvReac Intermediate BP raised Verified 10/03/24 10:35 Penicillins AdvReac Intermediate Rash Verified 10/03/24 10:35 phenobarbital AdvReac Intermediate Made Verified 10/03/24 10:35 'wired' prednisone AdvReac Intermediate Makes Verified 10/03/24 10:35 crazy Sulfa (Sulfonamide AdvReac Intermediate Upset Verified 10/03/24 10:35 Antibiotics) stomach Review of Systems Narrative: Constitutional symptoms: Negative except as documented in HPI. Skin symptoms: Negative except as documented in HPI. Eye symptoms: Negative except as documented in HPI. ENMT symptoms: Negative except as documented in HPI. Respiratory symptoms: Negative except as documented in HPI. Cardiovascular symptoms: Negative except as documented in HPI. Gastrointestinal symptoms: Negative except as documented in HPI. Genitourinary symptoms: Negative except as documented in HPI. Musculoskeletal symptoms: Negative except as documented in HPI. Neurologic symptoms: Negative except as documented in HPI. Psychiatric symptoms: Negative except as documented in HPI. Endocrine symptoms: Negative except as documented in HPI. PFS ED PFSH: Medical History (Updated 02/04/25 @ 14:29 by Mar Morgan MD) Overactive bladder Irritable bowel syndrome (IBS) No pertinent past medical history neghx: htn,dm,dvt/pe PCP: [facility] [place] spotted fever Lyme disease Hypothyroidism Broken arm Surgical History Deviated septum surgically H/O oral surgery wisdom teeth extraction Family History Father Thyroid disease Denies family history of Colon cancer Ovarian cancer Diabetes Heart disease Hypercholesteremia Breast cancer Hypertension Uterine cancer Stroke Social History Smoking and tobacco/nicotine status: unknown if used tobacco/nicotine Female Reproductive History: Spontaneous abortions: No Physical Exam Narrative: EXAM NARRATIVE: General: Alert, no acute distress. Skin: Warm, dry. Head: Normocephalic, atraumatic. Neck: Supple, trachea midline. Eye: Extraocular movements are intact. Ears, nose, mouth and throat: mucosa moist. Cardiovascular: Regular, Normal peripheral perfusion. Respiratory: Lungs are clear to auscultation, respirations are non-labored, breath sounds are equal, Symmetrical chest wall expansion. Gastrointestinal: Soft, Nontender, Non distended Musculoskeletal: Normal ROM, no deformity. Neurological: Alert and oriented, No focal neurological deficit observed. Psychiatric: Cooperative, appropriate mood & affect. Denies suicidal or homicidal ideations Course Vital Signs: Vital signs: Vital Signs Temperature 97.6 F 02/04/25 12:58 Pulse Rate 106 H 02/04/25 12:58 Respiratory Rate 17 02/04/25 12:58 Blood Pressure 107/70 02/04/25 12:58 Pulse Oximetry 99 02/04/25 14:29 Oxygen Delivery Me thod Room Air 02/04/25 14:29 MDM - Recheck/Abnormal Lab/Rx Medical Decision Making Medical decision making Patient's reason for coming to the emergency room: Depression Social determinants: Retired I reviewed the patient's medical record. Most recent visit was mid November at which time she had acute psychosis and was transferred to a geriatric psychiatric facility. I reviewed the patient's current home meds Patient says she is now on olanzapine and does not like the side effects Alternate historians: None Differential diagnosis: including but not limited to and based on the above HPI, review of systems and physical exam: Today the patient is depressed but not psychotic and not homicidal or suicidal. We discussed options and she says she has an appointment with behavioral health clinic but that is not for a week or so. For now she is content going to the crisis center to see if they can help. Assessment of risk: Level of risk: Moderate risk patient. Elderly with psychiatric issues. Hospitalization considerations: Considered admission but we will explore outpatient options first. She is not a danger to herself or others at this time. Assessment and plan: Depression ? Instructions given to go to the crisis center - Discharged home - Discussed plan with patient. Answered any questions. - Evaluation and treatment of this problem were appropriate in the emergency setting. No radiology studies performed this visit Discharge Plan Discharge Patient Disposition: Home Clinical Impression: Depression Condition: Stable Prescriptions: No Action cholecalciferol (vitamin D3) 10 mcg (400 unit) capsule 50 mcg PO BID albuterol sulfate 90 mcg/actuation HFA aerosol inhaler 2 puff inhalation Q6H PRN (Reason: shortness of breath or wheezing) Qty: 8.5 0RF levothyroxine [Unithroid] 25 mcg tablet 25 mcg PO DAILY escitalopram oxalate [Lexapro] 20 mg tablet 20 mg PO QDAY Qty: 90 1RF mirtazapine 30 mg tablet 30 mg PO .HS Qty: 90 1RF nortriptyline 50 mg capsule 50 mg PO DAILY Qty: 90 1RF estradiol 0.01 % (0.1 mg/gram) cream 1 g vaginal .PRN Qty: 3 3RF Rx Instructions: 1 gram vaginally 4 times weekly, space out doses doxycycline monohydrate 100 mg capsule 100 - 200 mg PO BID levothyroxine 50 mcg tablet 25 mcg PO BID mirtazapine 15 mg tablet 15 mg PO BEDTIME thyroid (pork) [[place] Thyroid] 30 mg tablet 30 mg PO BID Discharge Orders: Discharge ED (Routine); Ordered 02/04/25 Ordered By: Mar Morgan Referrals: Kristopher Astudillo CRNA [Primary Care Provider, Nurse Change Management Coordinator] Discharge Diet: Usual diet Discharge Activity: Increase activity as tolerated Patient Instructions: Depression (ED), Opioid Safety, Pain Management, Patient Portal & Héctor Instructions Activity Restrictions/Additional Instructions: Please follow-up with the [facility] behavioral health crisis center immediately upon discharge from the emergency room. Phone number is [phone]. There is a 24-hour crisis hotline with the number of [phone]. Hours of operation are 8 AM to 6 PM. If you develop any suicidal or homicidal thoughts please seek medical attention immediately. Thank you for choosing [facility] for your healthcare needs today. Please realize this is an emergency room and that we are providing you with a medical screening exam and this may not be complete and all inclusive of all the testing and or work up that you may need to determine your ailment or severity of your illness. You have been screened and evaluated and felt safe for discharge. Health conditions do change or evolve sometimes and as such it is important that you follow up with your Primary Doctor to be re checked, 3-5 days is a general good time frame for follow up. You are always welcome to return to the ED for re assessment if your symptoms are worsening or you have new concerns Print Language: Welsh Coding Level of Care Code ED Screw Cutter for Mj Valente
== END 2025-02-04 14:36 | disposition home or self-care (01) ==
PROVIDERS: Emergency Provider Emergency Medicine; PCP Nurse Anesthetist, Certified Registered
DX: F32.A Depression, unspecified (principal)
CPT/HCPCS: 99283

== ENCOUNTER → 2025-02-06 10:14 | Outpatient (BNVA) | payer MEDICARE, OTHER, SELFPAY | PROVIDERS: PCP Nurse Anesthetist, Certified Registered; Visit Provider Nurse Practitioner | DX: R60.0 Localized edema (principal) | CPT/HCPCS: 80048 ==